=== PATIENT | female | born 1965 | race Caucasian/White ===

== ENCOUNTER 2017-02-03 11:26 | Observation (INO) | payer OTHER ==
[2017-02-03] VITALS (10 sets, daily range): BP systolic 145–194; BP diastolic 70–88; PULSE 60–109; RESP 16–20; TEMP 98.3–99.8; O2SAT 89–100
[~2017-02-03] VITALS: Ht 170.2 cm; Wt 90.0 kg
[~2017-02-03 11:26] MED LIST: IBUP100S30 PO
--- NOTE | 2017-02-03 11:34 | PD ---
Physical Exam Date Seen by Provider: Feb 03, 2017 Time Seen by Provider: 11:31 Narrative Pt states she was sent here for a transfusion. States Dr. Walker advised her to come in. Labs drawn Monday notified today, no hx of anemia. No fatigue, SOB, bleeding. Pt denies any pain. VSS, awaiting bed placement. Hx of diabetes, she is not on blood thinners. Data Data Last Documented VS Vital Signs Date Time Temp Pulse Resp B/P Pulse Ox O2 Delivery O2 Flow Rate FiO2 02/03/17 11:29 98.5 88 16 180/80 100 MDM Supervised Visit with AYANNA: Amber Tony Feb 03, 2017 11:34
[2017-02-03 11:51] LABS: AUTOMATED NEUTROPHIL # 3.5 TH/MM3 (1.8-7.7); BASOPHIL # 0.1 TH/MM3 (0-0.2); BASOPHIL % 1.3 % (0.0-2.0); EOSINOPHIL # 0.1 TH/MM3 (0-0.4); EOSINOPHIL % 1.8 % (0.0-4.0); HEMATOCRIT 23.8 % (35.0-46.0); HEMO FLAGS DIFF FINAL; LYMPH % 26.7 % (9.0-44.0); LYMPHOCYTE # 1.5 TH/MM3 (1.0-4.8); MEAN CELL VOLUME 84.8 FL (80.0-100.0); MEAN CORPUSCULAR HEMOGLOBIN 26.9 PG (27.0-34.0); MEAN CORPUSCULAR HGB CONC 31.7 % (32.0-36.0); MONO % 10.5 % (0.0-8.0); NEUT % 59.7 % (16.0-70.0); PLATELET COUNT 134 TH/MM3 (150-450); RED BLOOD COUNT 2.81 MIL/MM3 (4.00-5.30); RED CELL DISTRIBUTION WIDTH 19.6 % (11.6-17.2); WHITE BLOOD COUNT 5.8 TH/MM3 (4.0-11.0)
[2017-02-03 12:00] LABS: APTT (PATIENT) 30.1 SEC (24.3-30.1); INTERNATIONAL NORMALIZED RATIO 1.2 RATIO; PROTHROMBIN TIME - PATIENT 13.4 SEC (9.8-11.6)
[2017-02-03 12:08] LABS: ANION GAP 7 MEQ/L (5-15); AST (GOT) 111 U/L (15-37); BICARBONATE 22.7 MEQ/L (21.0-32.0); BLOOD UREA NITROGEN 8 MG/DL (7-18); CHLORIDE 105 MEQ/L (98-107); GLOMERULAR FILTRATION RATE 59 ML/MIN (>89); POTASSIUM 3.7 MEQ/L (3.5-5.1); SODIUM (NA) 135 MEQ/L (136-145)
[2017-02-03 12:09] LABS: ALT (GPT) 42 U/L (10-53)
[2017-02-03 12:11] LABS: ALKALINE PHOSPHATASE 246 U/L (45-117); TOTAL BILIRUBIN ADULT 1.1 MG/DL (0.2-1.0)
--- NOTE | 2017-02-03 12:34 | PD ---
HPI Chief Complaint: Abnormal Results Time Seen by Provider: 12:29 Travel History International Travel<30 days: No Contact w/Intl Traveler<30days: No Traveled to known affect area: No History of Present Illness HPI 51-year-old female that presents to the ED for evaluation of anemia. Patient was told today to calm but her doctor for possible transfusion. Patient has a history of diabetes but no history of anemia. Per patient she had blood work and wants then she got the results today. She denies any bleeding of any kind. Denies taking any blood thinners. She does have a history of depression and anxiety for which he takes medications but she denies any aspirin or NSAID use. She denies any pain of any kind. She states feeling tired after work but other than that she has no lightheadedness or weakness. She denies any chest pain or shortness of breath. No palpitations. No numbness, tilling, weakness. No changes in stool. No urinary symptoms. She does have allergies to aspirin , Augmentin, contrast media and erythromycin. No pain of any kind. PFSH Past Medical History Cancer: No Diabetes: Yes Patient Takes Glucophage: No Diminished Hearing: No Glaucoma: No Hepatitis: No Hiatal Hernia: No Hypertension: No Thyroid Disease: No Tetanus Vaccination: > 5 Years Influenza Vaccination: No ?: Not Past Surgical History Surgical History: No Previous Surgery Pacemaker: No Social History Alcohol Use: Yes (OCCAS) Tobacco Use: No Substance Use: No Allergies-Medications (Allergen,Severity, Reaction): Coded Allergies: Aspirin (Unverified Allergy, Unknown, 11/04/09) Augmentin (Unverified Allergy, Unknown, 11/04/09) Contrast Media (Unverified Allergy, Unknown, 11/04/09) Erythromycin (Unverified Allergy, Unknown, 11/04/09) Reported Meds & Prescriptions Reported Meds & Active Scripts Active Reported Advil (Ibuprofen) 100 Mg/5 Ml Isatu 200 Mg PO DAILYPRN Review of Systems Except as stated in HPI: all other systems reviewed are Neg Physical Exam Narrative GENERAL: SKIN: Warm and dry. HEAD: Atraumatic. Normocephalic. EYES: Pupils equal and round. No scleral icterus. No injection or drainage. ENT: No nasal bleeding or discharge. Mucous membranes pink and moist. Tongue is midline. No uvula deviation. NECK: Trachea midline. No JVD. CARDIOVASCULAR: Regular rate and rhythm. No murmurs, S3, S4. RESPIRATORY: No accessory muscle use. Clear to auscultation. Breath sounds equal bilaterally. GASTROINTESTINAL: Abdomen soft, non-tender, nondistended. Hepatic and splenic margins not palpable. Rectal exam: Done with female nurse present. No sign of hemorrhoids or active bleeding at this time. Hemoccult was done and was negative. MUSCULOSKELETAL: Extremities without clubbing, cyanosis, or edema. No obvious deformities. Full range of motion of the upper and lower extremities bilaterally. 2+ pulses bilaterally. NEUROLOGICAL: Awake and alert. No obvious cranial nerve deficits. Motor grossly within normal limits. Five out of 5 muscle strength in the arms and legs. Normal speech. PSYCHIATRIC: Appropriate mood and affect; insight and judgment normal. Data Data Last Documented VS Vital Signs Date Time Temp Pulse Resp B/P Pulse Ox O2 Delivery O2 Flow Rate FiO2 02/03/17 11:29 98.5 88 16 180/80 100 Orders Complete Blood Count With Diff (02/03/17 11:34) Comprehensive Metabolic Panel (02/03/17 11:34) Prothrombin Time / Inr (Pt) (02/03/17 11:34) Act Partial Throm Time (Ptt) (02/03/17 11:34) Type And Screen (02/03/17 11:34) Red Blood Cells (Rbc) (02/03/17 13:04) Blood Product Administration .UPON TRANSFUSION (02/03/17 13:04) Sodium Chlor 0.9% 250 Ml Inj (Ns 250 Ml (02/03/17 13:15) Admit Order (Ed Use Only) (02/03/17 13:11) Labs Laboratory Tests Test 02/03/17 11:40 White Blood Count 5.8 TH/MM3 Red Blood Count 2.81 MIL/MM3 Hemoglobin 7.5 GM/DL Hematocrit 23.8 % Mean Corpuscular Volume 84.8 FL Mean Corpuscular Hemoglobin 26.9 PG Mean Corpuscular Hemoglobin 31.7 % Concent Red Cell Distribution Width 19.6 % Platelet Count 134 TH/MM3 Mean Platelet Volume 8.8 FL Neutrophils (%) (Auto) 59.7 % Lymphocytes (%) (Auto) 26.7 % Monocytes (%) (Auto) 10.5 % Eosinophils (%) (Auto) 1.8 % Basophils (%) (Auto) 1.3 % Neutrophils # (Auto) 3.5 TH/MM3 Lymphocytes # (Auto) 1.5 TH/MM3 Monocytes # (Auto) 0.6 TH/MM3 Eosinophils # (Auto) 0.1 TH/MM3 Basophils # (Auto) 0.1 TH/MM3 CBC Comment DIFF FINAL Differential Comment Prothrombin Time 13.4 SEC Prothromb Time International 1.2 RATIO Ratio Activated Partial 30.1 SEC Thromboplast Time Sodium Level 135 MEQ/L Potassium Level 3.7 MEQ/L Chloride Level 105 MEQ/L Carbon Dioxide Level 22.7 MEQ/L Anion Gap 7 MEQ/L Blood Urea Nitrogen 8 MG/DL Creatinine 0.99 MG/DL Estimat Glomerular Filtration 59 ML/MIN Rate Random Glucose 202 MG/DL Calcium Level 8.5 MG/DL Total Bilirubin 1.1 MG/DL Aspartate Amino Transf 111 U/L (AST/SGOT) Alanine Aminotransferase 42 U/L (ALT/SGPT) Alkaline Phosphatase 246 U/L Total Protein 8.6 GM/DL Albumin 2.7 GM/DL Blood Type B NEGATIVE Antibody Screen NEGATIVE Blood Bank Comment [facility] Medical Decision Making Medical Screen Exam Complete: Yes Emergency Medical Condition: Yes Medical Record Reviewed: Yes Interpretation(s) CBC & BMP Diagram 02/03/17 11:40 coags WNL LFTs slightly elevated with akl phosphatase and AST Differential Diagnosis GI bleed versus anemia versus blood transfusion versus normal exam. Narrative Course 51-year-old female that presents to the ED for evaluation of anemia. Patient was properly examined and was found to have signs and symptoms consistent with anemia. Labs and imaging ordered. Labs did show a low hemoglobin of 7.5. Hemoccult was done and was negative. No sign of active bleeding at this time. Unclear etiology of anemia but does appear to be significant. I spoke with my attending about findings and she recommends admission. My attending Dr. Gonzalez personally spoke with the patient and she did mentioned that patient does feel dizzy and weak which she denied to me. We'll admit to [facility]. HemaPrompt Point of Care Internal Pos. & Neg. Controls: Passed Fecal Specimen Occult Blood: Negative Diagnosis Primary Impression: Symptomatic anemia Admitting Information Admitting Physician Requests: Observation Gokul Hayes Feb 03, 2017 12:34
--- NOTE | 2017-02-03 13:13 | PD ---
Physical Exam Narrative GENERAL: Well-nourished, well-developed patient. SKIN: Warm and dry. HEAD: Normocephalic and atraumatic. EYES: No injection or drainage. ENT: No nasal drainage noted. NECK: Supple, trachea midline. CARDIOVASCULAR: Regular rate and rhythm RESPIRATORY: No increased effort. No accessory muscle use. NEUROLOGICAL: Awake and alert. Moves all extremities. Normal speech. Data Data Last Documented VS Vital Signs Date Time Temp Pulse Resp B/P Pulse Ox O2 Delivery O2 Flow Rate FiO2 02/03/17 11:29 98.5 88 16 180/80 100 Orders Complete Blood Count With Diff (02/03/17 11:34) Comprehensive Metabolic Panel (02/03/17 11:34) Prothrombin Time / Inr (Pt) (02/03/17 11:34) Act Partial Throm Time (Ptt) (02/03/17 11:34) Type And Screen (02/03/17 11:34) Red Blood Cells (Rbc) (02/03/17 13:04) Blood Product Administration .UPON TRANSFUSION (02/03/17 13:04) Sodium Chlor 0.9% 250 Ml Inj (Ns 250 Ml (02/03/17 13:15) Admit Order (Ed Use Only) (02/03/17 13:11) Labs Laboratory Tests Test 02/03/17 11:40 White Blood Count 5.8 TH/MM3 Red Blood Count 2.81 MIL/MM3 Hemoglobin 7.5 GM/DL Hematocrit 23.8 % Mean Corpuscular Volume 84.8 FL Mean Corpuscular Hemoglobin 26.9 PG Mean Corpuscular Hemoglobin 31.7 % Concent Red Cell Distribution Width 19.6 % Platelet Count 134 TH/MM3 Mean Platelet Volume 8.8 FL Neutrophils (%) (Auto) 59.7 % Lymphocytes (%) (Auto) 26.7 % Monocytes (%) (Auto) 10.5 % Eosinophils (%) (Auto) 1.8 % Basophils (%) (Auto) 1.3 % Neutrophils # (Auto) 3.5 TH/MM3 Lymphocytes # (Auto) 1.5 TH/MM3 Monocytes # (Auto) 0.6 TH/MM3 Eosinophils # (Auto) 0.1 TH/MM3 Basophils # (Auto) 0.1 TH/MM3 CBC Comment DIFF FINAL Differential Comment Prothrombin Time 13.4 SEC Prothromb Time International 1.2 RATIO Ratio Activated Partial 30.1 SEC Thromboplast Time Sodium Level 135 MEQ/L Potassium Level 3.7 MEQ/L Chloride Level 105 MEQ/L Carbon Dioxide Level 22.7 MEQ/L Anion Gap 7 MEQ/L Blood Urea Nitrogen 8 MG/DL Creatinine 0.99 MG/DL Estimat Glomerular Filtration 59 ML/MIN Rate Random Glucose 202 MG/DL Calcium Level 8.5 MG/DL Total Bilirubin 1.1 MG/DL Aspartate Amino Transf 111 U/L (AST/SGOT) Alanine Aminotransferase 42 U/L (ALT/SGPT) Alkaline Phosphatase 246 U/L Total Protein 8.6 GM/DL Albumin 2.7 GM/DL Blood Type B NEGATIVE Antibody Screen NEGATIVE Blood Bank Comment MDM Supervised Visit with AYANNA: Yes Interpretation(s) CBC & BMP Diagram 02/03/17 11:40 Narrative Course I, Dr. nieves, have reviewed the advance practice practitioner's documentation and am in agreement, met with the patient face to face, made the diagnosis, and the medical decision making was done by me. *My assessment and Findings: 51-year-old female presents with abnormal lab value as an outpatient. She states she's been dizzy and tired. Her lab work confirms anemia. We will admit and transfuse 1 unit. Patient agrees Physician Communication Physician Communication dr holguin agrees to admit Diagnosis Primary Impression: Symptomatic anemia Admitting Information Admitting Physician Requests: Observation Evelyne Nieves MD Feb 03, 2017 13:13
[2017-02-03] MEDS ORDERED: SODIUM CHLOR 0.9% 250 ML INJ 250 ML IV ONE (13:15)
--- NOTE | 2017-02-03 13:18 | HHI.HP ---
HPI Service [facility] Hospitalists Primary Care Physician Sanket Walker M.D. Admission Diagnosis anemia Chief Complaint: sob/dizzy/anemia Travel History International Travel<30 Days: No Contact w/Intl Traveler <30 Da: No Traveled to Known Affected Are: No History of Present Illness Pt is 51 yo with dm 2, htn who presents to ED at request of her pcp for new anemia. She was called for hgb of 7.5 and sent to ED. Here Hgb was 7.5. Pt says that she is symptomatic getting sob with exertion, dizzy and weak for at least 2 weeks. no vaginal bleeding and no hematochezia or melena. She notes some night sweats but says she is going through menopause. She takes 2 ibuprofen every day and has done so for years.. Denies any epigastric pain. Pt reports a rash over her face and chest that began 4 months ago. She went to a [facility] practitioner last week and one was apparently sampled and sent for analysis at "[facility]". On review of her outpt records her hgb was 12 in June. Review of Systems Other weak/dizzy/sob rash face/neck/chest. Past Family Social History Past Medical History dm 2 htn recently taken of thyroid meds per pt. depression. recent face/chest rash..seen by derm and eval pending Reported Medications daily ibuprofen 400mg daily cymbalta 20mg daily metformin 500mg daily losartan 50mg daily Allergies: Coded Allergies: Aspirin (Unverified Allergy, Unknown, 02/03/17) Augmentin (Unverified Allergy, Unknown, 02/03/17) Contrast Media (Unverified Allergy, Unknown, 02/03/17) Erythromycin (Unverified Allergy, Unknown, 02/03/17) Family History father "lymphoma involving kidney:" mother uterine ca sister breast ca Social History occ etoh no tob. Physical Exam Vital Signs face/ant chest with vesicular/pustular type rash. heart reg lung cta abd s/nt/nabs ext no edema Vital Signs Date Time Temp Pulse Resp B/P Pulse Ox O2 Delivery O2 Flow Rate FiO2 02/03/17 11:29 98.5 88 16 180/80 100 Laboratory Laboratory Tests Test 02/03/17 11:40 White Blood Count 5.8 Red Blood Count 2.81 Hemoglobin 7.5 Hematocrit 23.8 Mean Corpuscular Volume 84.8 Mean Corpuscular Hemoglobin 26.9 Mean Corpuscular Hemoglobin 31.7 Concent Red Cell Distribution Width 19.6 Platelet Count 134 Mean Platelet Volume 8.8 Neutrophils (%) (Auto) 59.7 Lymphocytes (%) (Auto) 26.7 Monocytes (%) (Auto) 10.5 Eosinophils (%) (Auto) 1.8 Basophils (%) (Auto) 1.3 Neutrophils # (Auto) 3.5 Lymphocytes # (Auto) 1.5 Monocytes # (Auto) 0.6 Eosinophils # (Auto) 0.1 Basophils # (Auto) 0.1 CBC Comment DIFF FINAL Differential Comment Prothrombin Time 13.4 Prothromb Time International 1.2 Ratio Activated Partial 30.1 Thromboplast Time Sodium Level 135 Potassium Level 3.7 Chloride Level 105 Carbon Dioxide Level 22.7 Anion Gap 7 Blood Urea Nitrogen 8 Creatinine 0.99 Estimat Glomerular Filtration 59 Rate Random Glucose 202 Calcium Level 8.5 Total Bilirubin 1.1 Aspartate Amino Transf 111 (AST/SGOT) Alanine Aminotransferase 42 (ALT/SGPT) Alkaline Phosphatase 246 Total Protein 8.6 Albumin 2.7 Blood Type B NEGATIVE Antibody Screen NEGATIVE Blood Bank Comment Result Diagram: 02/03/17 1140 02/03/17 1140 Assessment and Plan Problem List: (1) Symptomatic anemia Status: Acute Plan: Pt is 51 yo with dm2 and htn recent development of vesicular/pustular facial/chest rash presents with symptomatic anemia. probably iron def. ..guiac neg in ED. ..could be iron def from gi losses due to chronic nsaid use ..her plt are low and will consider bone marrow process ..with rash and nonspecific elevation of liver enzymes and probably iron def with r/o celiac stop nsaids. ppi ED gave unit blood due to symptoms. will give iv venofer iron iron panel, b12, peripheral smear. recheck lft, celiac, salvador panel. no active bleed and pt could be referred for outpt endoscopy if needed. will try to obtain recent derm evaluation. dvt prophylaxis. hsa pcp f/u Monday. (2) DM (diabetes mellitus) Status: Chronic Plan: ssi. oha (3) HTN (hypertension) Status: Chronic Plan: cont her arb. Bj Herrera MD Feb 03, 2017 13:18
[2017-02-03 13:37] LABS: RETIC % 2.1 % (0.4-3.0); REVIEW FLAG FINAL
[2017-02-03] MEDS ORDERED: REST30CA PO (13:55)
[2017-02-03] MEDS ORDERED: IBUP400T20 PO (13:55)
[2017-02-03] MEDS ORDERED: METO-309 PO (13:55)
[2017-02-03] MEDS ORDERED: ALPR.25 PO (13:55)
[2017-02-03] MEDS ORDERED: LEXA20TA PO (13:55)
[2017-02-03] MEDS ORDERED: METF500T PO (13:56)
[2017-02-03] MEDS ORDERED: cloNIDine HCL 0.1 MG TAB PO PRN (14:00)
[2017-02-03] MEDS ORDERED: DEXTROSE 50% IN WATER 50 ML VIAL(D50) IV PUSH PRN (14:15)
[2017-02-03] MEDS ORDERED: GLUCAGON 1 MG/ML VIAL OTHER PRN (14:15)
[2017-02-03 14:47] LABS: FERRITIN 19 NG/ML (8-252); TRANSFERRIN IRON PROFILE 330 MG/DL (200-360)
[2017-02-03] MEDS: INSULIN ASPART SUPPLEMENTAL SCALE SQ SCH ×2 (16:00→20:47)
[2017-02-03] MEDS ORDERED: IRON SUCROSE INJ 200 MG in SODIUM CHLORIDE 0.9% INJ 100 ML IV ONE (17:00)
[2017-02-03] MEDS ORDERED: LOSA50TA PO (19:26)
[2017-02-04] VITALS: PULSE 96
[2017-02-04 04:00] VITALS: PULSE 90
[2017-02-04 04:36] VITALS: BP 140/68; PULSE 89; RESP 18; TEMP 98.4; O2SAT 96
[2017-02-04] MEDS: INSULIN ASPART SUPPLEMENTAL SCALE SQ SCH ×2 (06:10→13:00)
[2017-02-04 06:19] LABS: AUTOMATED NEUTROPHIL # 3.9 TH/MM3 (1.8-7.7); BASOPHIL # 0.1 TH/MM3 (0-0.2); BASOPHIL % 0.9 % (0.0-2.0); EOSINOPHIL # 0.1 TH/MM3 (0-0.4); EOSINOPHIL % 1.6 % (0.0-4.0); HEMATOCRIT 26.2 % (35.0-46.0); HEMO FLAGS DIFF FINAL; LYMPH % 23.2 % (9.0-44.0); LYMPHOCYTE # 1.4 TH/MM3 (1.0-4.8); MEAN CELL VOLUME 83.2 FL (80.0-100.0); MEAN CORPUSCULAR HEMOGLOBIN 27.4 PG (27.0-34.0); MEAN CORPUSCULAR HGB CONC 32.9 % (32.0-36.0); MONO % 9.3 % (0.0-8.0); PLATELET COUNT 124 TH/MM3 (150-450); RED BLOOD COUNT 3.14 MIL/MM3 (4.00-5.30)
[2017-02-04 06:46] LABS: BICARBONATE 25.4 MEQ/L (21.0-32.0); POTASSIUM 3.6 MEQ/L (3.5-5.1)
[2017-02-04 06:50] LABS: TOTAL BILIRUBIN ADULT 2.2 MG/DL (0.2-1.0)
[2017-02-04 07:59] VITALS: PULSE 82
[2017-02-04 08:43] VITALS: BP 161/71; PULSE 86; RESP 20; TEMP 98.2; O2SAT 96
[2017-02-04] MEDS ORDERED: IRON SUCROSE INJ 200 MG in SODIUM CHLORIDE 0.9% INJ 100 ML IV ONE (09:00)
[2017-02-04] MEDS ORDERED: metFORMIN HCL 500 MG TAB PO SCH (09:00)
[2017-02-04] MEDS ORDERED: DULoxetine HCl DR 20 MG CAP PO SCH (09:00)
[2017-02-04] MEDS ORDERED: LOSARTAN 50 MG TAB PO SCH (09:00)
[2017-02-04] MEDS ORDERED: ESCITALOPRAM OXALATE 20 MG TAB PO SCH (09:00)
--- NOTE | 2017-02-04 09:26 | RADRPT ---
EXAM DATE/TIME: 02/04/2017 08:40 [facility] COMPARISON: No previous studies available for comparison. INDICATIONS : Increased lab values. MEDICAL HISTORY : Hypertension. Hypothyroidism. Diabetes. Depression. Anxiety. Anemia. SURGICAL HISTORY : Laproscopy. ENCOUNTER: Initial ACUITY: 1 day PAIN SCORE: 0/10 LOCATION: Bilateral upper quadrant MEASUREMENTS: LIVER: 19.8. cm length COMMON DUCT: 4 mm RIGHT KIDNEY: 10.9 x 5.4 x 4.4 cm SPLEEN: 14.3 cm length FINDINGS: LIVER: The liver is enlarged measuring up to 20 cm with heterogeneous echotexture and increased echogenicity . There is no focal mass or ductal dilatation. There is no evidence of ascites. COMMON DUCT: No intraluminal mass or stone visualized. GALLBLADDER: Contains no stones, demonstrates no wall thickening or pericholecystic fluid. PANCREAS: The visualized portions are within normal limits. RIGHT KIDNEY: No hydronephrosis, stone or mass. SPLEEN: Mild splenomegaly with no focal lesion. CONCLUSION: 1. Enlarged heterogeneous liver with increased echogenicity. This could indicate fatty infiltration o r hepatocellular disease. 2. Mild splenomegaly with no focal lesion or ascites. 3. Normal gallbladder with no evidence of cholelithiasis. Aime Guidry MD on February 04, 2017 at 9:22 Board Certified Radiologist. This report was verified electronically.
[2017-02-04 12:30] VITALS: BP 152/68; PULSE 86; RESP 18; TEMP 97.9; O2SAT 96
--- NOTE | 2017-02-04 13:49 | HHI.PR ---
Subjective Remarks no bleeding no abdomen pain munoz and dizziness resolved with blood. eager for d/c Objective Vitals facial/ant chest rash. vesicular/pustular heart reg lung cta abd s/nt ext no edema Vital Signs Date Time Temp Pulse Resp B/P Pulse Ox O2 Delivery O2 Flow Rate FiO2 02/04/17 12:30 97.9 86 18 152/68 96 02/04/17 08:43 98.2 86 20 161/71 96 02/04/17 04:36 98.4 89 18 140/68 96 02/04/17 04:00 90 02/04/17 00:00 96 02/03/17 23:24 98.4 86 19 145/72 95 02/03/17 22:46 99.8 87 20 194/88 97 02/03/17 20:38 99.8 87 20 160/78 97 02/03/17 20:00 96 02/03/17 18:40 109 02/03/17 18:33 98.4 90 18 149/75 95 02/03/17 18:15 98.9 91 20 159/76 98 02/03/17 17:17 98.3 60 20 157/78 89 02/03/17 13:50 90 16 159/70 97 Room Air 02/03/17 02/03/17 02/04/17 15:00 23:00 07:00 Intake Total 730 ml Balance 730 ml Intake Oral 230 ml Packed Cells 500 ml # Voids 1 Result Diagram: 02/04/17 0543 02/04/17 0543 A/P Problem List: (1) Symptomatic anemia Status: Acute Plan: Pt is 51 yo with dm2 and htn recent development of vesicular/pustular facial/chest rash presents with symptomatic anemia. iron deficiency. ..guiac neg in ED. ..could be iron def from gi losses due to chronic nsaid use ..her plt are low and will consider bone marrow process ..with rash and nonspecific elevation of liver enzymes plus iron def will exclude celiac Her LFT are slightly elevated..bili/asa/alk phos Liver u/s showed hepatomegaly and probable fatty liver but no mass. peripheral smear consistent with iron def. stop nsaids. ppi s/p 1 unit blood in ED and venofer iron iv x 2 cont po iron f/u celiac panel I think she needs GI referral for egd/colonoscopy f/u LFT and she may need further evaluation of Liver..?CT or MR ...I would have a low threshold to look for malignancy in this pt. Hopefully she can get her dermatology results Monday. She has an appt with her pcp on Monday morning..I will call also. i (2) DM (diabetes mellitus) Status: Chronic Plan: ssi. oha (3) HTN (hypertension) Status: Chronic Plan: cont her arb. Bj Herrera MD Feb 04, 2017 13:48
[2017-02-04] MEDS ORDERED: PROT40TA PO (13:50)
[2017-02-04] MEDS ORDERED: FERR325T8 PO (13:50)
--- NOTE | 2017-02-04 13:51 | HHI.DCPOC ---
Discharge Care Plan Diagnosis: (1) Symptomatic anemia (2) Iron deficiency anemia (3) Abnormal liver enzymes (4) Enlarged liver (5) DM (diabetes mellitus) (6) HTN (hypertension) (7) NSAID long-term use Goals to Promote Your Health * To prevent worsening of your condition and complications * To maintain your health at the optimal level Directions to Meet Your Goals Take your medications as prescribed Follow your dietary instruction Follow activity as directed Keep your appointments as scheduled Take your immunizations and boosters as scheduled If your symptoms worsen call your PCP, if no PCP go to Urgent Care Center or Emergency Room Smoking is Dangerous to Your Health. Avoid second hand smoke Call the 24-hour hour crisis hotline for domestic abuse at Bj Herrera MD Feb 04, 2017 13:51
[2017-02-08 11:52] LABS: IGA SERUM 1542 mg/dL (81-463)
[2017-02-08 17:52] LABS: TISSUE TRANSGLUTAMINASE AB 6 U/mL (())
[2017-02-09 23:53] LABS: ENDOMYSIAL AB TITER ND (<1:5)
== END 2017-02-04 15:48 | disposition home or self-care (01) ==
LOC: NEPE 11:26 → NEDA 13:12 → NEPGCP 15:11
PROVIDERS: ADMIT Hospitalist; ATTEND Hospitalist
DX: D50.9 Iron deficiency anemia, unspecified (principal); D69.6 Thrombocytopenia, unspecified; I10 Essential (primary) hypertension; E11.9 Type 2 diabetes mellitus without complications; R21 Rash and other nonspecific skin eruption; R74.8 Abnormal levels of other serum enzymes; R06.02 Shortness of breath; R61 Generalized hyperhidrosis; F32.9 Major depressive disorder, single episode, unspecified; E03.9 Hypothyroidism, unspecified; R16.1 Splenomegaly, not elsewhere classified; F41.9 Anxiety disorder, unspecified; K76.0 Fatty (change of) liver, not elsewhere classified; Z79.899 Other long term (current) drug therapy
CPT/HCPCS: 36430; 76705; 80048; 80053; 80076; 82607; 82728; 82784; 82948; 83516; 83540; 83550; 85025; 85044; 85060; 85610; 85730; 86038; 86255; 86850; 86900; 86901; 86920; 96365; 96366; 96372; 99285; G0378; J1756; J1815; P9016

== ENCOUNTER → 2017-05-31 | Outpatient (CLI) | payer OTHER ==
[~2017-05-31] MED LIST changes: +ALPR.25 PO; +FERR325T18 PO; -IBUP100S30 PO; +LEXA20TA PO; +LOSA50TA PO; +METF500T PO; +PROT40TA PO; +REST30CA PO
== END ==
LOC: CLAB 09:59
PROVIDERS: ATTEND Family Medicine
DX: R42 Dizziness and giddiness (principal)
CPT/HCPCS: 36415; 82140

== ENCOUNTER 2017-06-19 12:33 | Inpatient (IN) | payer OTHER ==
[~2017-06-19] VITALS: Ht 162.6 cm; Wt 90.0 kg
[2017-06-19 12:37] VITALS: BP 139/66; PULSE 70; RESP 16; TEMP 98; O2SAT 96
[2017-06-19] MEDS ORDERED: TRAM50TA PO (12:49)
[2017-06-19] MEDS ORDERED: METF750T PO (12:49)
[2017-06-19] MEDS ORDERED: VITA100064 PO (12:49)
[2017-06-19] MEDS ORDERED: MULTTAB67 PO (12:49)
[2017-06-19] MEDS ORDERED: NADO20TA PO (12:49)
[2017-06-19] MEDS ORDERED: LACT10SO PO (12:49)
[2017-06-19 13:02] VITALS: RESP 20; O2SAT 94
[2017-06-19 13:11] LABS: AUTOMATED NEUTROPHIL # 2.6 TH/MM3 (1.8-7.7); BASOPHIL % 0.7 % (0.0-2.0); EOSINOPHIL # 0.1 TH/MM3 (0-0.4); EOSINOPHIL % 1.7 % (0.0-4.0); HEMATOCRIT 33.8 % (35.0-46.0); HEMOGLOBIN 11.3 GM/DL (11.6-15.3); LYMPH % 34.7 % (9.0-44.0); LYMPHOCYTE # 1.7 TH/MM3 (1.0-4.8); MEAN CELL VOLUME 106.9 FL (80.0-100.0); MEAN CORPUSCULAR HEMOGLOBIN 35.6 PG (27.0-34.0); MEAN CORPUSCULAR HGB CONC 33.3 % (32.0-36.0); MEAN PLATELET VOLUME 10.3 FL (7.0-11.0); MONO % 11.1 % (0.0-8.0); MONOCYTE # 0.6 TH/MM3 (0-0.9); NEUT % 51.8 % (16.0-70.0); PLATELET COUNT 86 TH/MM3 (150-450); RED BLOOD COUNT 3.16 MIL/MM3 (4.00-5.30); RED CELL DISTRIBUTION WIDTH 14.9 % (11.6-17.2)
[2017-06-19 13:21] LABS: INTERNATIONAL NORMALIZED RATIO 1.5 RATIO; PROTHROMBIN TIME - PATIENT 15.2 SEC (9.8-11.6)
[2017-06-19 13:28] LABS: ALBUMIN 2.7 GM/DL (3.4-5.0); ALT (GPT) 74 U/L (10-53); AST (GOT) 143 U/L (15-37); BICARBONATE 23.2 MEQ/L (21.0-32.0); BLOOD UREA NITROGEN 19 MG/DL (7-18); CALCIUM 8.8 MG/DL (8.5-10.1); CHLORIDE 107 MEQ/L (98-107); CREATININE 1.17 MG/DL (0.50-1.00); DIRECT BILIRUBIN ADULT 2.8 MG/DL (0.0-0.2); GLOMERULAR FILTRATION RATE 48 ML/MIN (>89); GLUCOSE,RANDOM 137 MG/DL (74-106); SODIUM (NA) 140 MEQ/L (136-145)
--- NOTE | 2017-06-19 13:30 | RADRPT ---
EXAM DATE/TIME: 06/19/2017 13:10 [facility] COMPARISON: No previous studies available for comparison. INDICATIONS : Dizziness, shortness of breath getting worse over the last 3 weeks MEDICAL HISTORY : None. SURGICAL HISTORY : None. ENCOUNTER: Initial ACUITY: 3 weeks PAIN SCORE: 0/10 LOCATION: Bilateral chest FINDINGS: Minimal parenchymal changes left lung base. Right lung clear. No pneumothorax. No fluid The cardio mediastinal contours are unremarkable. Osseous structures are intact. CONCLUSION: Minimal nonspecific parenchymal changes left base. Ronaldo Potter MD FACR on June 19, 2017 at 13:28 Board Certified Radiologist. This report was verified electronically.
[2017-06-19 13:33] LABS: ALKALINE PHOSPHATASE 125 U/L (45-117); INDIRECT BILIRUBIN 1.7 MG/DL (0.0-0.8); TOTAL BILIRUBIN ADULT 4.5 MG/DL (0.2-1.0); TOTAL PROTEIN 8.3 GM/DL (6.4-8.2); TROPONIN I LESS THAN 0.02 NG/ML (0.02-0.05)
[2017-06-19] MEDS ORDERED: LACTULOSE SYRUP 20 GM/30 ML CUP PO ONE (14:15)
--- NOTE | 2017-06-19 14:27 | RADRPT ---
EXAM DATE/TIME: 06/19/2017 14:09 [facility] COMPARISON: No previous studies available for comparison. INDICATIONS : Altered mental status. Right eye vision changes. RADIATION DOSE: 34.46 CTDIvol (mGy) MEDICAL HISTORY : Hypertension. SURGICAL HISTORY : None. ENCOUNTER: Initial ACUITY: 2 weeks PAIN SCALE: 0/10 LOCATION: cranial TECHNIQUE: Multiple contiguous axial images were obtained of the head. Using automated exposure control and adj ustment of the mA and/or kV according to patient size, radiation dose was kept as low as reasonably a chievable to obtain optimal diagnostic quality images. DICOM format image data is available electro nically for review and comparison. FINDINGS: CEREBRUM: The ventricles are normal for age. No evidence of midline shift, mass lesion, hemorrhage or acute in farction. No extra-axial fluid collections are seen. POSTERIOR FOSSA: The cerebellum and brainstem are intact. The 4th ventricle is midline. The cerebellopontine angle i s unremarkable. EXTRACRANIAL: The visualized portion of the orbits is intact. SKULL: The calvaria is intact. No evidence of skull fracture. CONCLUSION: Negative for acute process. Ronaldo Potter MD FACR on June 19, 2017 at 14:25 Board Certified Radiologist. This report was verified electronically.
--- NOTE | 2017-06-19 14:46 | PD ---
HPI Chief Complaint: Neuro Symptoms/ Deficits Time Seen by Provider: 12:43 Travel History International Travel<30 days: No Contact w/Intl Traveler<30days: No Traveled to known affect area: No History of Present Illness HPI Patient is a 51 year old female who comes in with her daughter due to worsening confusion. Per daughter, for the past few weeks she has seemed increasingly confused. Her doctor has started to do tests for cirrhosis, but they do not have a lot of answers yet. She takes Lactulose at home, but her daughter says that she has not been taking it. She had an ammonia level drawn in the past 2 weeks that was elevated and she says her doctor was going to recheck it next week. Her daughter was concerned because while she was talking to her, she became acutely altered, unresponsive and her eye drifted to the left. She says she has been having headaches. She has not had fever or chills. She denies abdominal pain. PFSH Past Medical History Anxiety: Yes Depression: Yes Cancer: No Cardiovascular Problems: No Diabetes: Yes Patient Takes Glucophage: Yes Diminished Hearing: No Glaucoma: No Hepatitis: No Hiatal Hernia: No Hypertension: Yes Neurologic: Yes (headaches) Psychiatric: Yes Respiratory: No Thyroid Disease: Yes (hypothyroidism) Ulcer: Yes (hx of transfusion) Tetanus Vaccination: > 5 Years Influenza Vaccination: No ?: Not : 1 Para: 1 Miscarriage: 0 : 0 Past Surgical History Abdominal Surgery: Yes (laporoscopy) Pacemaker: No Other Surgery: Yes (colonoscopy) Social History Alcohol Use: Yes (OCCAS) Tobacco Use: No Substance Use: No Allergies-Medications (Allergen,Severity, Reaction): Coded Allergies: amoxicillin (Unverified Allergy, Unknown, 06/19/17) aspirin (Unverified Allergy, Unknown, 06/19/17) clavulanic acid (Unverified Allergy, Unknown, 06/19/17) diatrizoate meglumine (Unverified Allergy, Unknown, 06/19/17) erythromycin base (Unverified Allergy, Unknown, 06/19/17) gadobenic acid (Unverified Allergy, Unknown, 06/19/17) gadodiamide (Unverified Allergy, Unknown, 06/19/17) gadoteridol (Unverified Allergy, Unknown, 06/19/17) iodixanol (Unverified Allergy, Unknown, 06/19/17) iohexol (Unverified Allergy, Unknown, 06/19/17) Reported Meds & Prescriptions Reported Meds & Active Scripts Active Ferrous Sulfate 325 Mg (65 Mg Iron) Tablet 325 Mg PO BIDPC Reported Nadolol 20 Mg Tab 20 Mg PO DAILY Tramadol (Tramadol HCl) 50 Mg Tab 50 Mg PO Q4H PRN Metformin ER (Metformin HCl) 750 Mg Mckenzie 1,500 Mg PO DAILY With evening meal Vitamin D3 (Cholecalciferol) 1,000 Unit Tab 1,000 Units PO DAILY Multiple Vitamin 1 Tab 1 Tab PO DAILY Lactulose Liq (Lactulose) 10 Gm/15 Ml Soln 15 Ml PO BID Losartan (Losartan Potassium) 50 Mg Tab 50 Mg PO DAILY Review of Systems Except as stated in HPI: all other systems reviewed are Neg General / Constitutional: No: Fever, Chills Eyes: No: Blurred Vision HENT: Positive: Headaches Cardiovascular: No: Chest Pain or Discomfort Respiratory: No: Shortness of Breath Gastrointestinal: No: Nausea, Vomiting, Abdominal Pain Musculoskeletal: No: Myalgias, Edema Skin: Positive Change in Pigmentation, No Rash Neurologic: Positive: Change in Mentation, No: Weakness Physical Exam Narrative GENERAL: Awake and alert, mildly confused, in no acute distress. SKIN: Jaundiced, but no signs of wounds or infections. HEAD: Atraumatic. Normocephalic. EYES: Pupils equal and round. Scleral icterus. ENT: Mucous membranes pink and moist. NECK: Trachea midline. No JVD. CARDIOVASCULAR: Regular rate and rhythm. No murmur appreciated. RESPIRATORY: No accessory muscle use. Clear to auscultation. Breath sounds equal bilaterally. GASTROINTESTINAL: Abdomen soft, non-tender, nondistended. MUSCULOSKELETAL: No obvious deformities. No clubbing. No cyanosis. No edema. NEUROLOGICAL: Awake and alert, with slowed speech, has some difficulty carrying on a conversation. No obvious cranial nerve deficits. Motor grossly within normal limits. PSYCHIATRIC: Appropriate mood and affect; insight and judgment normal. Data Data Last Documented VS Vital Signs Date Time Temp Pulse Resp B/P (MAP) Pulse Ox O2 Delivery O2 Flow Rate FiO2 06/19/17 13:02 20 94 Room Air 06/19/17 12:37 98.0 70 139/66 (90) Orders Orders Electrocardiogram (06/19/17 12:51) Ammonia (06/19/17 12:51) Basic Metabolic Panel (Bmp) (06/19/17 12:51) Complete Blood Count With Diff (06/19/17 12:51) Prothrombin Time / Inr (Pt) (06/19/17 12:51) Act Partial Throm Time (Ptt) (06/19/17 12:51) Troponin I (06/19/17 12:51) Urinalysis - C+S If Indicated (06/19/17 12:51) Chest, Single Ap (06/19/17 12:51) Ct Brain W/O Iv Contrast(Rout) (06/19/17 12:51) Blood Glucose (06/19/17 12:51) Ecg Monitoring (06/19/17 12:51) Iv Access Insert/Monitor (06/19/17 12:51) Oximetry (06/19/17 12:51) Sodium Chloride 0.9% Flush (Ns Flush) (06/19/17 13:00) Alcohol (Ethanol) (06/19/17 12:51) Hepatic Functional Panel (06/19/17 12:51) Lactulose Liq (Lactulose Liq) (06/19/17 14:15) Labs Laboratory Tests Test 06/19/17 13:00 White Blood Count 5.0 TH/MM3 Red Blood Count 3.16 MIL/MM3 Hemoglobin 11.3 GM/DL Hematocrit 33.8 % Mean Corpuscular Volume 106.9 FL Mean Corpuscular Hemoglobin 35.6 PG Mean Corpuscular Hemoglobin Concent 33.3 % Red Cell Distribution Width 14.9 % Platelet Count 86 TH/MM3 Mean Platelet Volume 10.3 FL Neutrophils (%) (Auto) 51.8 % Lymphocytes (%) (Auto) 34.7 % Monocytes (%) (Auto) 11.1 % Eosinophils (%) (Auto) 1.7 % Basophils (%) (Auto) 0.7 % Neutrophils # (Auto) 2.6 TH/MM3 Lymphocytes # (Auto) 1.7 TH/MM3 Monocytes # (Auto) 0.6 TH/MM3 Eosinophils # (Auto) 0.1 TH/MM3 Basophils # (Auto) 0.0 TH/MM3 CBC Comment AUTO DIFF Differential Comment AUTO DIFF CONFIRMED Platelet Estimate LOW Platelet Morphology Comment ENLARGED Prothrombin Time 15.2 SEC Prothromb Time International Ratio 1.5 RATIO Activated Partial Thromboplast Time 33.2 SEC Blood Urea Nitrogen 19 MG/DL Creatinine 1.17 MG/DL Random Glucose 137 MG/DL Total Protein 8.3 GM/DL Albumin 2.7 GM/DL Calcium Level 8.8 MG/DL Alkaline Phosphatase 125 U/L Aspartate Amino Transf (AST/SGOT) 143 U/L Alanine Aminotransferase (ALT/SGPT) 74 U/L Total Bilirubin 4.5 MG/DL Direct Bilirubin 2.8 MG/DL Sodium Level 140 MEQ/L Potassium Level 4.1 MEQ/L Chloride Level 107 MEQ/L Carbon Dioxide Level 23.2 MEQ/L Anion Gap 10 MEQ/L Estimat Glomerular Filtration Rate 48 ML/MIN Indirect Bilirubin 1.7 MG/DL Ammonia 93 MCMOL/L Troponin I LESS THAN 0.02 NG/ML Ethyl Alcohol Level LESS THAN 3 MG/DL MDM Medical Decision Making Medical Screen Exam Complete: Yes Emergency Medical Condition: Yes Medical Record Reviewed: Yes Interpretation(s) ECG shows normal sinus rhythm at 62, no ST elevation or depression, normal intervals. Differential Diagnosis Hepatic encephalopathy versus electrolyte abnormality versus CVA versus ICH Narrative Course Patient is a 50-year-old female who comes in due to confusion and an episode of unresponsiveness. Currently, patient is mildly confused, has slowed speech. IV established, labs sent. Labs show an elevated total bilirubin, abnormal liver function testing and elevated INR. Ammonia level is 93, which is more than double her previous [address] head performed shows no acute abnormalities. Patient given lactulose. Ultrasound ordered. Patient will be admitted for management of hepatic encephalopathy as well as liver failure. Diagnosis Primary Impression: Liver failure Qualified Codes: K72.00 - Acute and subacute hepatic failure without coma Additional Impressions: Hepatic encephalopathy Coagulopathy Admitting Information Admitting Physician Requests: Admit Geneva Trujillo MD Jun 19, 2017 14:46
[2017-06-19 14:47] VITALS: BP 111/63; PULSE 63; RESP 16; O2SAT 97
[2017-06-19] MEDS ORDERED: KETOROLAC TROMETHAMINE 30 MG/ML (IVP) VIAL IV PUSH ONE (15:00)
--- NOTE | 2017-06-19 16:23 | HHI.HP ---
HPI Service [facility] Hospitalists Primary Care Physician Sanket Walkre M.D. Admission Diagnosis hepatic encephalopathy, liver failure, coagulpathy Chief Complaint: confusion Travel History International Travel<30 Days: No Contact w/Intl Traveler <30 Da: No Traveled to Known Affected Are: No History of Present Illness Patient is 51 yo with htn and dm 2. She was seen here at [facility] in 02/09 with symptomatic anemia and new diagnosis of iron def anemia was made. she was given blood transfusion and had guiac neg stool. Mild lft elevation and her celiac ab's were positive. She was discharged and f/ u with pcp then GI and had egd/colonoscopy. Sent to Hem/onc and then [facility]. Per my discussion with pcp GI/Rheum thought she also might have autoimmune hepatitis and recommended liver bx. Pt then refused to go back to those physicians. Later noted to have elevated ammonia but was noncompliant with lactulose. Has recently been more confused with falls resumed lactulose 2 days ago but daughter came into town and brought her to ED for slow mentation and balance concerns. Pt tells me it has been up to a month since her last drink of wine. But daughter and another family friend found open wine bottle on her table. Pt reluctantly admitted to etoh overuse in the past and she admits to 6-8 tylenol per day for around a yr. Presented with hepatic encephalopathy and I was asked to admit her. Review of Systems Other confusion falls med noncompliance Past Family Social History Past Medical History dm 2 htn iron def anemia celiac disease. positive ab's depression. recent face/chest rash..seen by derm and michael per pt is "sarcoidosis" egd/colon within last 2 months reportedly negative except for benign polyp Reported Medications Ferrous Sulfate 325 Mg (65 Mg Iron) Tablet 325 Mg PO BIDPC Nadolol 20 Mg Tab 20 Mg PO DAILY Tramadol (Tramadol HCl) 50 Mg Tab 50 Mg PO Q4H PRN Metformin ER (Metformin HCl) 750 Mg Mckenzie 1,500 Mg PO DAILY With evening meal Vitamin D3 (Cholecalciferol) 1,000 Unit Tab 1,000 Units PO DAILY Multiple Vitamin 1 Tab 1 Tab PO DAILY Lactulose Liq (Lactulose) 10 Gm/15 Ml Soln 15 Ml PO BID Losartan (Losartan Potassium) 50 Mg Tab 50 Mg PO DAILY Allergies: Coded Allergies: amoxicillin (Verified Allergy, Unknown, 06/19/17) aspirin (Verified Allergy, Unknown, 06/19/17) clavulanic acid (Verified Allergy, Unknown, 06/19/17) diatrizoate meglumine (Verified Allergy, Unknown, 06/19/17) erythromycin base (Verified Allergy, Unknown, 06/19/17) gadobenic acid (Verified Allergy, Unknown, 06/19/17) gadodiamide (Verified Allergy, Unknown, 06/19/17) gadoteridol (Verified Allergy, Unknown, 06/19/17) iodixanol (Verified Allergy, Unknown, 06/19/17) iohexol (Verified Allergy, Unknown, 06/19/17) Family History parent with etoh abuse Social History past etoh abuse. pt uses wine..pt is not forthcoming with exact amt of etoh still consumed. Physical Exam Vital Signs mild confusion cooperative icteric/jaundice heart reg lung cta abd s/nt ext no edema Vital Signs Date Time Temp Pulse Resp B/P (MAP) Pulse Ox O2 Delivery O2 Flow Rate FiO2 06/19/17 15:59 16 06/19/17 14:47 63 16 111/63 (79) 97 Room Air 06/19/17 13:02 20 94 Room Air 06/19/17 12:37 98.0 70 16 139/66 (90) 96 Laboratory Laboratory Tests Test 06/19/17 13:00 White Blood Count 5.0 Red Blood Count 3.16 Hemoglobin 11.3 Hematocrit 33.8 Mean Corpuscular Volume 106.9 Mean Corpuscular Hemoglobin 35.6 Mean Corpuscular Hemoglobin Concent 33.3 Red Cell Distribution Width 14.9 Platelet Count 86 Mean Platelet Volume 10.3 Neutrophils (%) (Auto) 51.8 Lymphocytes (%) (Auto) 34.7 Monocytes (%) (Auto) 11.1 Eosinophils (%) (Auto) 1.7 Basophils (%) (Auto) 0.7 Neutrophils # (Auto) 2.6 Lymphocytes # (Auto) 1.7 Monocytes # (Auto) 0.6 Eosinophils # (Auto) 0.1 Basophils # (Auto) 0.0 CBC Comment AUTO DIFF Differential Comment AUTO DIFF CONFIRMED Platelet Estimate LOW Platelet Morphology Comment ENLARGED Prothrombin Time 15.2 Prothromb Time International Ratio 1.5 Activated Partial Thromboplast Time 33.2 Blood Urea Nitrogen 19 Creatinine 1.17 Random Glucose 137 Total Protein 8.3 Albumin 2.7 Calcium Level 8.8 Alkaline Phosphatase 125 Aspartate Amino Transf (AST/SGOT) 143 Alanine Aminotransferase (ALT/SGPT) 74 Total Bilirubin 4.5 Direct Bilirubin 2.8 Sodium Level 140 Potassium Level 4.1 Chloride Level 107 Carbon Dioxide Level 23.2 Anion Gap 10 Estimat Glomerular Filtration Rate 48 Indirect Bilirubin 1.7 Ammonia 93 Troponin I LESS THAN 0.02 Ethyl Alcohol Level LESS THAN 3 Result Diagram: 06/19/17 1300 06/19/17 1300 Caprinalem VTE Risk Assessment Caprini VTE Risk Assessment: No/Low Risk (score <= 1) Caprini Risk Assessment Model Point Value = 1 Point Value = 2 Point Value = 3 Point Value = 5 Age 41-60 Minor surgery BMI > 25 kg/m2 Swollen legs Varicose veins or History of unexplained or recurrent spontaneous Oral contraceptives or hormone replacement Sepsis (< 1 month) Serious lung disease, including pneumonia (< 1 month) Abnormal pulmonary function Acute myocardial infarction Congestive heart failure (< 1 month) History of inflammatory bowel disease Medical patient at bed rest Age 61-74 Arthroscopic surgery Major open surgery (> 45 min) Laparoscopic surgery (> 45 min) Malignancy Confined to bed (> 72 hours) Immobilizing plaster cast Central venous access Age >= 75 History of VTE Family history of VTE Factor V Leiden Prothrombin [id number] Lupus anticoagulant Anticardiolipin antibodies Elevated serum homocysteine Heparin-induced thrombocytopenia Other congenital or acquired thrombophilia Stroke (< 1 month) Elective arthroplasty Hip, pelvis, or leg fracture Acute spinal cord injury (< 1 month) Prophylaxis Regimen Total Risk Factor Score Risk Level Prophylaxis Regimen 0-1 Low Early ambulation 2 Moderate Order ONE of the following: *Sequential Compression Device (SCD) *Heparin 5000 units SQ BID 3-4 Higher Order ONE of the following medications: *Heparin 5000 units SQ TID *Enoxaparin/Lovenox 40 mg SQ daily (WT < 150 kg, CrCl > 30 mL/min) *Enoxaparin/Lovenox 30 mg SQ daily (WT < 150 kg, CrCl > 10-29 mL/min) *Enoxaparin/Lovenox 30 mg SQ BID (WT < 150 kg, CrCl > 30 mL/min) AND/OR *Sequential Compression Device (SCD) 5 or more Highest Order ONE of the following medications: *Heparin 5000 units SQ TID (Preferred with Epidurals) *Enoxaparin/Lovenox 40 mg SQ daily (WT < 150 kg, CrCl > 30 mL/min) *Enoxaparin/Lovenox 30 mg SQ daily (WT < 150 kg, CrCl > 10-29 mL/min) *Enoxaparin/Lovenox 30 mg SQ BID (WT < 150 kg, CrCl > 30 mL/min) AND *Sequential Compression Device (SCD) Assessment and Plan Problem List: (1) Liver failure ICD Codes: K72.90 - Hepatic failure, unspecified without coma Status: Acute Plan: 1. pt with evidence for liver failure. hepatic encephalopathy. falls due to encephalopathy. she admits to taking excessive amt's of tylenol daily for over a year. She also has a hx of etoh abuse and is currently very elusive to the exact amt still using. I spoke to family who just arrived in town and they are suspicious of etoh excess. she also has thrombocytopenia. spoke to pcp who says GI was concerned for autoimmune hepatitis and recommended liver bx and pt refused. 2. recent dx of celiac dz with iron def anemia. some degree of lft abnormality may also be related. 3. dm2 4. htn plan. hold oha and bp meds due to nml bg and low/nml bp scheduled lactulose for encephalopathy Pt eval to reassess balance. pt with multiple bruises from falls at home Pt had been seen previously by [facility]...she at the moment refuses to be seen by that group... pt says she is changing Insurance plans next week and she will lose her pcp and she will seek a new GI group. I will call her pcp to see if any effort to coordinate her care to new physicians is possible. (2) Hepatic encephalopathy ICD Codes: K72.90 - Hepatic failure, unspecified without coma Status: Acute (3) Celiac disease ICD Codes: K90.0 - Celiac disease Status: Chronic (4) Iron deficiency anemia ICD Codes: D50.9 - Iron deficiency anemia, unspecified Status: Chronic (5) DM (diabetes mellitus) ICD Codes: E11.9 - Type 2 diabetes mellitus without complications Status: Chronic (6) HTN (hypertension) ICD Codes: I10 - Essential (primary) hypertension Status: Chronic (7) CKD (chronic kidney disease) stage 3, GFR 30-59 ml/min ICD Codes: N18.3 - Chronic kidney disease, stage 3 (moderate) Status: Chronic Physician Certification 2 Midnight Certification Type: Admission for Inpatient Services Order for Inpatient Services 3The services are ordered in accordance with Medicare regulations or non- Medicare payer requirements, as applicable. In the case of services not specified as inpatient-only, they are appropriately provided as inpatient services in accordance with the 2-midnight benchmark. Estimated LOS (days): 3 3 days is the estimated time the patient will need to remain in the hospital, assuming treatment plan goals are met and no additional complications. Post-Hospital Plan: Home Problem Qualifiers (1) Liver failure: Qualified Codes: K72.00 - Acute and subacute hepatic failure without coma (2) DM (diabetes mellitus): (3) HTN (hypertension): Qualified Codes: I10 - Essential (primary) hypertension Bj Herrera MD Jun 19, 2017 16:23
--- NOTE | 2017-06-19 16:23 | RADRPT ---
EXAM DATE/TIME: 06/19/2017 15:56 [facility] COMPARISON: No previous studies available for comparison. INDICATIONS : Right upper qaudrant pain. MEDICAL HISTORY : Hypothyroidism. Hypertension. Diabetes. SURGICAL HISTORY : Laparoscopy. Colonoscopy. ENCOUNTER: Subsequent ACUITY: 1 day PAIN SCORE: 0/10 LOCATION: Right upper quadrant MEASUREMENTS: LIVER: 20.1 cm length COMMON DUCT: 4 mm RIGHT KIDNEY: 10.5 x 4.7 x 4.4 cm FINDINGS: LIVER: Enlarged liver. No focal mass. COMMON DUCT: No intraluminal mass or stone visualized. GALLBLADDER: Contains no stones, demonstrates no wall thickening or pericholecystic fluid. PANCREAS: The visualized portions are within normal limits. RIGHT KIDNEY: No evidence of hydronephrosis, stone, or mass. CONCLUSION: Hepatomegaly. Evelio Ferro MD on June 19, 2017 at 16:20 Board Certified Radiologist. This report was verified electronically.
[2017-06-19] MEDS: INSULIN ASPART SUPPLEMENTAL SCALE SQ SCH ×2 (16:58→20:51)
[2017-06-19] MEDS: traMADol HCL 50 MG TAB PO PRN (16:59)
[2017-06-19 17:56] VITALS: BP 123/64; PULSE 64; RESP 16; O2SAT 97
[2017-06-19 19:21] VITALS: BP 105/61; PULSE 79; RESP 18; TEMP 97.8; O2SAT 97
[2017-06-19] MEDS: LACTULOSE SYRUP 20 GM/30 ML CUP PO SCH ×2 (20:51→23:58)
[2017-06-19] MEDS: SODIUM CHLORIDE 0.9% FLUSH 10 ML FLUSH IV FLUSH PRN (20:52)
[2017-06-19] MEDS: FERROUS SULFATE 325 MG (65 MG ELEMENTAL IRON) TAB PO SCH (20:54)
[2017-06-20] VITALS: BP 106/60; PULSE 69; RESP 17; TEMP 96.8; O2SAT 98
[2017-06-20] MEDS: traMADol HCL 50 MG TAB PO PRN ×5 (02:50→23:46)
[2017-06-20 04:00] VITALS: BP 97/59; PULSE 67; RESP 16; TEMP 97; O2SAT 96
[2017-06-20] MEDS: LACTULOSE SYRUP 20 GM/30 ML CUP PO SCH ×4 (06:23→23:46)
[2017-06-20 06:47] LABS: ALBUMIN 2.5 GM/DL (3.4-5.0); BICARBONATE 25.4 MEQ/L (21.0-32.0); CREATININE 1.24 MG/DL (0.50-1.00); DIRECT BILIRUBIN ADULT 2.6 MG/DL (0.0-0.2)
[2017-06-20 06:49] LABS: INDIRECT BILIRUBIN 1.4 MG/DL (0.0-0.8); TOTAL PROTEIN 7.8 GM/DL (6.4-8.2)
[2017-06-20 08:00] VITALS: BP 97/57; PULSE 90; RESP 16; TEMP 97; O2SAT 95
[2017-06-20] MEDS: INSULIN ASPART SUPPLEMENTAL SCALE SQ SCH ×4 (08:00→20:40)
[2017-06-20] MEDS: FERROUS SULFATE 325 MG (65 MG ELEMENTAL IRON) TAB PO SCH ×2 (08:39→16:32)
[2017-06-20] MEDS: MULTIVITAMIN TAB PO SCH (08:39)
[2017-06-20] MEDS: CHOLECALCIFEROL (VIT D3) 1000 UNIT TAB PO SCH (08:39)
[2017-06-20] MEDS: NADOLOL 20 MG TAB PO SCH (08:40)
[2017-06-20] MEDS ORDERED: LOSARTAN 50 MG TAB PO SCH (09:00)
--- NOTE | 2017-06-20 11:09 | HHI.PR ---
Subjective Remarks maybe a little more oriented today. eager for d/c Objective Vitals mild encephalopathy heart reg lung cta abd s/nt ext no pitting left back ecchymosis Vital Signs Date Time Temp Pulse Resp B/P (MAP) Pulse Ox O2 Delivery O2 Flow Rate FiO2 06/20/17 08:00 97.0 90 16 97/57 (70) 95 06/20/17 04:00 97.0 67 16 97/59 (72) 96 06/20/17 00:00 96.8 69 17 106/60 (75) 98 06/19/17 19:21 97.8 79 18 105/61 (76) 97 06/19/17 19:10 06/19/17 17:56 64 16 123/64 (83) 97 Room Air 06/19/17 15:59 16 06/19/17 14:47 63 16 111/63 (79) 97 Room Air 06/19/17 13:02 20 94 Room Air 06/19/17 12:37 98.0 70 16 139/66 (90) 96 Result Diagram: 06/19/17 1300 06/20/17 0520 A/P Problem List: (1) Liver failure ICD Codes: K72.90 - Hepatic failure, unspecified without coma Status: Acute Plan: 1. pt with evidence for liver failure. hepatic encephalopathy. falls due to encephalopathy. she admits to taking excessive amt's of tylenol daily for over a year. She also has a hx of etoh abuse and is currently very elusive to the exact amt still using. I spoke to family last night who just arrived in town and they are suspicious of etoh excess. she also has thrombocytopenia. 2. recent dx of celiac dz with iron def anemia. some degree of lft abnormality may also be related. 3. dm2 4. htn plan. hold oha and bp meds due to nml bg and low/nml bp scheduled lactulose for encephalopathy Pt eval to reassess balance. pt with multiple bruises from falls at home Pt had been seen previously by [facility]...she at the moment refuses to be seen by that group... pt says she is changing Insurance plans next week and she will lose her pcp and she will seek a new GI group. I will call her pcp to see if any effort to coordinate her care to new physicians is possible. addendum: spoke to her pcp Dr Sanket Walker. Pt did see juvenile probation officer Dr Mclean and GI Dr Blackmon recently. They suspected autoimmune hepatitis and recommended liver bx. After that pcp says pt basically withdrew and refused to go back to those doctors. In addition she refused to let pcp contact daughter to help her out in this situation. She had refused to take the lactulose for many weeks after prescribing. complicating this pt will lose all of her current doctors due to Insurance changing Jun 26. Dr Walker has given me GI doctor recommendations to pass along to pt and family going forward. As above daughter is in town now and I will include her in the care of our patient. (2) Hepatic encephalopathy ICD Codes: K72.90 - Hepatic failure, unspecified without coma Status: Acute (3) Celiac disease ICD Codes: K90.0 - Celiac disease Status: Chronic (4) Iron deficiency anemia ICD Codes: D50.9 - Iron deficiency anemia, unspecified Status: Chronic (5) DM (diabetes mellitus) ICD Codes: E11.9 - Type 2 diabetes mellitus without complications Status: Chronic (6) HTN (hypertension) ICD Codes: I10 - Essential (primary) hypertension Status: Chronic (7) CKD (chronic kidney disease) stage 3, GFR 30-59 ml/min ICD Codes: N18.3 - Chronic kidney disease, stage 3 (moderate) Status: Chronic Problem Qualifiers (1) Liver failure: Qualified Codes: K72.00 - Acute and subacute hepatic failure without coma Bj Herrera MD Jun 20, 2017 11:09
[2017-06-20 12:00] VITALS: BP 104/54; PULSE 63; RESP 18; TEMP 96.8; O2SAT 93
[2017-06-20 13:43] LABS: BACTERIA, URINE RARE /hpf; BILIRUBIN, URINE SMALL (NEG); BLOOD, URINE NEG (NEG); GLUCOSE,URINE NEG (NEG); HYALINE CAST, URINE 7 /lpf (RARE); KETONE, URINE NEG (NEG); MUCUS URINE FEW /lpf (OCC); NITRITE,URINE NEG (NEG); SQUAMOUS EPITHELIAL CELL URINE 7 /hpf (0-5); TRANSITIONAL EPI CELLS, URINE <1 /hpf; URINE COLOR DARK-YELLOW (YELLW/STRAW); URINE LEUKOCYTE ESTERASE MOD (NEG)
[2017-06-20 16:00] VITALS: BP 114/69; PULSE 62; RESP 16; TEMP 96.4; O2SAT 96
--- NOTE | 2017-06-20 17:09 | EKG ---
Date Performed: 06/19/2017 Time Performed: 13:15:40 PTAGE: 51 years EKG: Sinus rhythm NORMAL ECG NO PREVIOUS TRACING DOCTOR: Lavonne Bruner Interpretating Date/Time 06/20/2017 17:09:04
[2017-06-20 21:56] VITALS: BP 104/57; PULSE 68; RESP 18; TEMP 97.2; O2SAT 96
[2017-06-21 01:01] VITALS: BP 112/64; PULSE 67; RESP 18; TEMP 97.2; O2SAT 98
[2017-06-21] MEDS: traMADol HCL 50 MG TAB PO PRN ×3 (04:58→16:49)
[2017-06-21] MEDS: LACTULOSE SYRUP 20 GM/30 ML CUP PO SCH ×2 (04:58→20:44)
[2017-06-21 07:53] VITALS: BP 128/60; PULSE 74; RESP 19; TEMP 97.2; O2SAT 97
[2017-06-21] MEDS: INSULIN ASPART SUPPLEMENTAL SCALE SQ SCH ×4 (08:00→20:44)
[2017-06-21 08:07] LABS: ALBUMIN 2.8 GM/DL (3.4-5.0); BICARBONATE 24.3 MEQ/L (21.0-32.0); CALCIUM 9.2 MG/DL (8.5-10.1); CREATININE 1.35 MG/DL (0.50-1.00); DIRECT BILIRUBIN ADULT 2.6 MG/DL (0.0-0.2)
[2017-06-21 08:09] LABS: INDIRECT BILIRUBIN 1.5 MG/DL (0.0-0.8); TOTAL BILIRUBIN ADULT 4.1 MG/DL (0.2-1.0); TOTAL PROTEIN 8.3 GM/DL (6.4-8.2)
[2017-06-21] MEDS: FERROUS SULFATE 325 MG (65 MG ELEMENTAL IRON) TAB PO SCH ×2 (08:19→16:49)
[2017-06-21] MEDS: MULTIVITAMIN TAB PO SCH (08:20)
[2017-06-21] MEDS: NADOLOL 20 MG TAB PO SCH (08:20)
[2017-06-21] MEDS: CHOLECALCIFEROL (VIT D3) 1000 UNIT TAB PO SCH (08:20)
--- NOTE | 2017-06-21 10:12 | HHI.PR ---
Subjective Remarks more epigastric pain today. vomited clear liquid while I was present. says she will have trouble eating. pt reports 15bm yesterday with lactulose Objective Vitals nauseated. dry heaving. heart reg lung cta abd mild epigastric tenderness. bs. no rebound ext no edema Vital Signs Date Time Temp Pulse Resp B/P (MAP) Pulse Ox O2 Delivery O2 Flow Rate FiO2 06/21/17 07:53 97.2 74 19 128/60 (82) 97 06/21/17 01:01 97.2 67 18 112/64 (80) 98 06/20/17 21:56 97.2 68 18 104/57 (73) 96 06/20/17 16:00 96.4 62 16 114/69 (84) 96 06/20/17 12:00 96.8 63 18 104/54 (71) 93 Result Diagram: 06/19/17 1300 06/21/17 0720 A/P Problem List: (1) Liver failure ICD Codes: K72.90 - Hepatic failure, unspecified without coma Status: Acute Plan: 1. pt with evidence for liver failure. hepatic encephalopathy. falls due to encephalopathy. she admits to taking excessive amt's of tylenol daily for over a year. She also has a hx of etoh abuse and is currently very elusive to the exact amt still using. I spoke to family who just arrived in town and they are suspicious of etoh excess. she also has thrombocytopenia. spoke to pcp who says GI was concerned for autoimmune hepatitis and recommended liver bx and pt refused. 2. recent dx of celiac dz with iron def anemia. some degree of lft abnormality may also be related. 3. dm2 4. htn plan. hold oha and bp meds due to nml bg and low/nml bp scheduled lactulose for encephalopathy giving alot of bm's..but rising ammonia..try rifaximin here today but will not be able to afford at d/c unable to d/c pt home today..pt with epigastric pain and vomiting now. place on liquid diet as tolererated..zofran/protonix/simethicone Will update daughter when she arrives. Pt eval to reassess balance. pt with multiple bruises from falls at home Pt had been seen previously by [facility]...she at the moment refuses to be seen by that group... pt says she is changing Insurance plans next week and she will lose her pcp and she will seek a new GI group I spoke to pcp who says she refused liver bx. Pt says she will do it once established by new belt and link shop supervisor (2) Hepatic encephalopathy ICD Codes: K72.90 - Hepatic failure, unspecified without coma Status: Acute (3) Celiac disease ICD Codes: K90.0 - Celiac disease Status: Chronic (4) Iron deficiency anemia ICD Codes: D50.9 - Iron deficiency anemia, unspecified Status: Chronic (5) DM (diabetes mellitus) ICD Codes: E11.9 - Type 2 diabetes mellitus without complications Status: Chronic (6) HTN (hypertension) ICD Codes: I10 - Essential (primary) hypertension Status: Chronic (7) CKD (chronic kidney disease) stage 3, GFR 30-59 ml/min ICD Codes: N18.3 - Chronic kidney disease, stage 3 (moderate) Status: Chronic Problem Qualifiers (1) Liver failure: Qualified Codes: K72.00 - Acute and subacute hepatic failure without coma Bj Herrera MD Jun 21, 2017 10:12
[2017-06-21] MEDS ORDERED: ONDANSETRON HCL 4 MG/2 ML VIAL IV PUSH ONE (10:30)
[2017-06-21] MEDS: SODIUM CHLOR 0.9% 1000 ML INJ 1,000 ML IV SCH (10:30)
[2017-06-21] MEDS: PANTOPRAZOLE SODIUM 40 MG VIAL IV PUSH SCH ×2 (10:52→20:45)
[2017-06-21 12:00] VITALS: BP 148/89; PULSE 75; RESP 18; TEMP 96.9; O2SAT 95
[2017-06-21] MEDS: SIMETHICONE 125 MG CHEWABLE TAB PO SCH ×2 (13:21→20:45)
[2017-06-21] MEDS: RIFAXIMIN 550 MG TAB PO SCH ×2 (13:22→20:44)
[2017-06-21] MEDS ORDERED: ONDANSETRON HCL 4 MG/2 ML VIAL IV PUSH PRN (14:00)
[2017-06-21 16:00] VITALS: BP 98/52; PULSE 69; RESP 18; TEMP 97.8; O2SAT 95
[2017-06-21 20:27] VITALS: BP 99/64; PULSE 81; RESP 17; TEMP 97.8; O2SAT 96
[2017-06-22] VITALS (7 sets, daily range): BP systolic 91–153; BP diastolic 52–86; PULSE 65–93; RESP 16–19; TEMP 96.2–98.3; O2SAT 95–100
[2017-06-22] MEDS: SODIUM CHLOR 0.9% 1000 ML INJ 1,000 ML IV SCH ×3 (00:48→21:32)
[2017-06-22] MEDS: SIMETHICONE 125 MG CHEWABLE TAB PO SCH ×3 (05:36→21:24)
[2017-06-22 06:46] LABS: ALBUMIN 2.6 GM/DL (3.4-5.0); CALCIUM 8.7 MG/DL (8.5-10.1); CREATININE 1.56 MG/DL (0.50-1.00); DIRECT BILIRUBIN ADULT 2.5 MG/DL (0.0-0.2)
[2017-06-22 06:49] LABS: INDIRECT BILIRUBIN 2.1 MG/DL (0.0-0.8); TOTAL BILIRUBIN ADULT 4.6 MG/DL (0.2-1.0); TOTAL PROTEIN 8.2 GM/DL (6.4-8.2)
[2017-06-22] MEDS: INSULIN ASPART SUPPLEMENTAL SCALE SQ SCH ×4 (08:00→20:18)
[2017-06-22] MEDS: FERROUS SULFATE 325 MG (65 MG ELEMENTAL IRON) TAB PO SCH ×2 (09:27→16:55)
[2017-06-22] MEDS: LACTULOSE SYRUP 20 GM/30 ML CUP PO SCH ×2 (09:27→20:26)
[2017-06-22] MEDS: RIFAXIMIN 550 MG TAB PO SCH ×2 (09:27→20:26)
[2017-06-22] MEDS: MULTIVITAMIN TAB PO SCH (09:27)
[2017-06-22] MEDS: NADOLOL 20 MG TAB PO SCH (09:27)
[2017-06-22] MEDS: CHOLECALCIFEROL (VIT D3) 1000 UNIT TAB PO SCH (09:27)
[2017-06-22] MEDS: SODIUM CHLORIDE 0.9% FLUSH 10 ML FLUSH IV FLUSH PRN (09:45)
[2017-06-22] MEDS: PANTOPRAZOLE SODIUM 40 MG VIAL IV PUSH SCH ×2 (09:46→21:31)
[2017-06-22] MEDS: traMADol HCL 50 MG TAB PO PRN ×3 (11:00→21:28)
--- NOTE | 2017-06-22 11:02 | HHI.PR ---
Subjective Remarks TOLERATING FULL LIQUID MORE ORIENTED TODAY. DAUGHTER AGREES. DAUGHTER WILL BE LEAVING TOWN AND SHE REALLY WANTS GI TO SAY NOW IF BX NEEDED OF LIVER Objective Vitals oriented heart reg lung cta abd s/nt ext no pitting Vital Signs Date Time Temp Pulse Resp B/P (MAP) Pulse Ox O2 Delivery O2 Flow Rate FiO2 06/22/17 08:00 96.3 93 16 153/86 (108) 98 06/22/17 04:15 97.7 74 19 95/58 (70) 96 06/22/17 00:00 98.2 75 17 91/60 (70) 95 06/21/17 20:27 97.8 81 17 99/64 (76) 96 06/21/17 17:49 16 06/21/17 16:00 97.8 69 18 98/52 (67) 95 06/21/17 12:00 96.9 75 18 148/89 (108) 95 Result Diagram: 06/19/17 1300 06/22/17 0601 A/P Problem List: (1) Liver failure ICD Codes: K72.90 - Hepatic failure, unspecified without coma Status: Acute Plan: 1. pt with evidence for liver failure. hepatic encephalopathy. falls due to encephalopathy. she admits to taking excessive amt's of tylenol daily for over a year. She also has a hx of etoh abuse and is currently very elusive to the exact amt still using. I spoke to family who just arrived in town and they are suspicious of etoh excess. she also has thrombocytopenia. spoke to pcp who says GI (DR BIRD) was concerned for autoimmune hepatitis and recommended liver bx and pt refused at the time 2. recent dx of celiac dz with iron def anemia. some degree of lft abnormality may also be related. 3. dm2 4. htn plan. continue gentle ivf and monitor cr as it is slowly rising..could just be from lactulose and diarrhea. hold oha and bp meds due to nml bg and low/nml bp scheduled lactulose for encephalopathy giving alot of bm's..but rising ammonia...lactulose lowered and rifaxamin added....but will not be able to afford at d/c n/v from yesterday better. advance diet. .zofran/protonix/simethicone Pt eval to reassess balance. pt with multiple bruises from falls at home Pt had been seen previously by [facility]...she refused to be seen by that group... pt says she is changing Insurance plans next week and she will lose her pcp and she will seek a new GI group I spoke to pcp who says she refused liver bx. TODAY PT DAUGHTER HERE FROM OUT OF TOWN. They would like GI eval to decide if liver bx warranted at this time as suggested previously by Dr Bird...pt is considering it now. If so will consult IR...if not then plan for d/c and f/u outpt. (2) Hepatic encephalopathy ICD Codes: K72.90 - Hepatic failure, unspecified without coma Status: Acute (3) Celiac disease ICD Codes: K90.0 - Celiac disease Status: Chronic (4) Iron deficiency anemia ICD Codes: D50.9 - Iron deficiency anemia, unspecified Status: Chronic (5) DM (diabetes mellitus) ICD Codes: E11.9 - Type 2 diabetes mellitus without complications Status: Chronic (6) HTN (hypertension) ICD Codes: I10 - Essential (primary) hypertension Status: Chronic (7) CKD (chronic kidney disease) stage 3, GFR 30-59 ml/min ICD Codes: N18.3 - Chronic kidney disease, stage 3 (moderate) Status: Chronic Problem Qualifiers (1) Liver failure: Qualified Codes: K72.00 - Acute and subacute hepatic failure without coma Bj Herrera MD Jun 22, 2017 11:01
[2017-06-22] MEDS: CIPROFLOXACIN 250 MG TAB PO SCH (21:24)
[2017-06-23] VITALS (8 sets, daily range): BP systolic 92–141; BP diastolic 45–71; PULSE 64–73; RESP 17–20; TEMP 96.5–98.1; O2SAT 95–99
[2017-06-23] MEDS: traMADol HCL 50 MG TAB PO PRN ×3 (03:37→15:02)
[2017-06-23] MEDS: SIMETHICONE 125 MG CHEWABLE TAB PO SCH ×3 (05:45→22:30)
[2017-06-23 05:48] LABS: BICARBONATE 20.9 MEQ/L (21.0-32.0); CALCIUM 8.5 MG/DL (8.5-10.1); CREATININE 0.98 MG/DL (0.50-1.00)
[2017-06-23] MEDS: INSULIN ASPART SUPPLEMENTAL SCALE SQ SCH ×4 (08:00→21:00)
[2017-06-23] MEDS: NADOLOL 20 MG TAB PO SCH (08:24)
[2017-06-23] MEDS: MULTIVITAMIN TAB PO SCH (08:24)
[2017-06-23] MEDS: FERROUS SULFATE 325 MG (65 MG ELEMENTAL IRON) TAB PO SCH ×2 (08:24→18:21)
[2017-06-23] MEDS: CIPROFLOXACIN 250 MG TAB PO SCH ×2 (08:24→22:17)
[2017-06-23] MEDS: CHOLECALCIFEROL (VIT D3) 1000 UNIT TAB PO SCH (08:24)
[2017-06-23] MEDS: LACTULOSE SYRUP 20 GM/30 ML CUP PO SCH ×2 (08:26→22:17)
[2017-06-23] MEDS: RIFAXIMIN 550 MG TAB PO SCH ×2 (08:28→22:30)
--- NOTE | 2017-06-23 08:32 | HHI.PR ---
Subjective Remarks No new complaints Pt concerned about pain with the liver biopsy but is willing to proceed with it today Objective Vitals Vital Signs Date Time Temp Pulse Resp B/P (MAP) Pulse Ox O2 Delivery O2 Flow Rate FiO2 06/23/17 03:52 98.1 73 17 107/67 (80) 98 06/22/17 23:15 97.6 70 17 100/52 (68) 98 06/22/17 20:45 98.3 70 16 108/58 (75) 100 06/22/17 16:15 97.0 65 16 109/65 (80) 98 06/22/17 12:00 96.2 68 16 101/59 (73) 96 Result Diagram: 06/19/17 1300 06/23/17 0453 Other Results Laboratory Tests Test 06/22/17 06:01 06/23/17 04:53 Blood Urea Nitrogen 25 MG/DL 15 MG/DL Creatinine 1.56 MG/DL 0.98 MG/DL Random Glucose 92 MG/DL 76 MG/DL Total Protein 8.2 GM/DL Albumin 2.6 GM/DL Calcium Level 8.7 MG/DL 8.5 MG/DL Alkaline Phosphatase 98 U/L Aspartate Amino Transf (AST/SGOT) 138 U/L Alanine Aminotransferase (ALT/SGPT) 69 U/L Total Bilirubin 4.6 MG/DL Direct Bilirubin 2.5 MG/DL Sodium Level 140 MEQ/L 140 MEQ/L Potassium Level 4.3 MEQ/L 3.9 MEQ/L Chloride Level 109 MEQ/L 108 MEQ/L Carbon Dioxide Level 21.0 MEQ/L 20.9 MEQ/L Anion Gap 10 MEQ/L 11 MEQ/L Estimat Glomerular Filtration Rate 35 ML/MIN 59 ML/MIN Indirect Bilirubin 2.1 MG/DL Ammonia 66 MCMOL/L 62 MCMOL/L Imaging Last Impressions Head CT 06/19/17 1251 Signed Impressions: Service Date/Time: Monday, June 19, 2017 14:09 - CONCLUSION: Negative for acute process. Ronaldo Potter MD FACR Chest X-Ray 06/19/17 1251 Signed Impressions: Service Date/Time: Monday, June 19, 2017 13:10 - CONCLUSION: Minimal nonspecific parenchymal changes left base. Ronaldo Potter MD FACR Gall Bladder Ultrasound 06/19/17 0000 Signed Impressions: Service Date/Time: Monday, June 19, 2017 15:56 - CONCLUSION: Hepatomegaly. Evelio Ferro MD Objective Remarks General: NAD, Alert and oriented, some mild confusion Chest: CTA Cardiac: Regular Abd: +BS, soft mildly distended, nontender Ext: No edema A/P Problem List: (1) Liver failure ICD Codes: K72.90 - Hepatic failure, unspecified without coma Status: Acute Plan: 1. Pt with evidence for liver failure, hepatic encephalopathy, and falls due to encephalopathy. she admits to taking excessive amt's of Tylenol daily for over a year. She also has a hx of EtOH abuse and is currently very elusive to the exact amt still using. I spoke to family who just arrived in town and they are suspicious of EtOH excess. She also has thrombocytopenia. Spoke to PCP who says GI (DR BLACKMON) was concerned for autoimmune hepatitis and recommended liver bx and pt refused at the time. - Cont. scheduled lactulose 30mL BID for encephalopathy - Ammonia level 62 today - Cont. Rifaximin 500mg po BID, but will not likely be able to afford at d/c - Cont. Zofran/Protonix/Simethicone - PT recommending HHC/PT - Pt had been seen previously by [facility], she refused to be seen by that group but pt says she is changing Insurance plans next week and she will lose her pcp and she will seek a new GI group. The case was discussed with her daughter on 06/22 and she requested GI eval to decide if liver bx was warranted at this time as suggested previously by Dr Blackmon. Pt was seen by Dr. Oswald on 06/22 and he did recommend liver biopsy. This was ordered and pt is currently agreeable. - CT guided liver biopsy for today 2. Recent dx of celiac dz with iron def anemia. some degree of LFT abnormality may also be related. 3. DM, type 2 - hold OHA due to normal blood glucose levels 4. HTN - Hold antihypertensive meds due to low/normal BP 5. Acute renal insufficiency - Labs are improving with gentle IVF - Monitor labs - Could just be from lactulose and diarrhea. (2) Hepatic encephalopathy ICD Codes: K72.90 - Hepatic failure, unspecified without coma Status: Acute (3) Celiac disease ICD Codes: K90.0 - Celiac disease Status: Chronic (4) Iron deficiency anemia ICD Codes: D50.9 - Iron deficiency anemia, unspecified Status: Chronic (5) DM (diabetes mellitus) ICD Codes: E11.9 - Type 2 diabetes mellitus without complications Status: Chronic (6) HTN (hypertension) ICD Codes: I10 - Essential (primary) hypertension Status: Chronic (7) CKD (chronic kidney disease) stage 3, GFR 30-59 ml/min ICD Codes: N18.3 - Chronic kidney disease, stage 3 (moderate) Status: Chronic Assessment and Plan Patient examined. Assessment and plan formulated with Yakelin Keene PA-C. I agree with the above. hepatic failure. tylenol/etoh suspected GI concerned about autoimmune hepatitis and recc liver bx. that is ordered for today. cont lactulose/rifaxamin for now. celiac dz/iron def anemia. Problem Qualifiers (1) Liver failure: Qualified Codes: K72.00 - Acute and subacute hepatic failure without coma Yakelin Keene Jun 23, 2017 08:32 Bj Herrera MD Jun 23, 2017 12:49
[2017-06-23] MEDS: PANTOPRAZOLE SODIUM 40 MG VIAL IV PUSH SCH ×2 (10:08→22:31)
[2017-06-23] MEDS ORDERED: LORazepam 2 MG/ML VIAL IV PUSH ONE (10:45)
[2017-06-23] MEDS ORDERED: MIDAZOLAM HCL 2 MG/2 ML VIAL ONE (15:26)
[2017-06-23] MEDS ORDERED: LIDOCAINE HCL 1% 20 ML VIAL ONE (15:32)
--- NOTE | 2017-06-23 16:31 | PD.RAD ---
Post CT Procedure Prog Note Pre Procedure Diagnosis: (1) Enlarged liver (2) Abnormal liver enzymes Post Procedure Diagnosis: (1) Enlarged liver (2) Abnormal liver enzymes Procedure Date: Jun 23, 2017 Supervising Radiologist: Rafael Pan Anesthesia: Local, Conscious Sedation Plan of Activity Patient to Unit: Nursing Unit Patient Condition: Good See PACS Report for procedural detail/treatment Biopsy Imaging Guidance: CT Side: Right Biopsy Procedure: Liver Specimen: Core Biopsy Rafael Pan MD Jun 23, 2017 16:31
--- NOTE | 2017-06-23 16:57 | RADRPT ---
EXAM DATE/TIME: 06/23/2017 16:14 [facility] COMPARISON: No previous studies available for comparison. INDICATIONS : Liver function. SEDATION TIME: 30 minutes BIOPSY SITE: liver MEDICATION(S): 1.) 4 mg midazolam (Versed) IV 2.) 200 mcg fentanyl (Sublimaze) DEVICE(S): 1.) 18 gauge BioPince needle MEDICAL HISTORY : Hypothyroidism. SURGICAL HISTORY : Abdomen sx. ENCOUNTER: Initial ACUITY: 1 day PAIN SCORE: 1/10 LOCATION: Right lateral side liver A total of two core specimen(s) were obtained and sent to the laboratory for pathologic evaluation. PROCEDURE: 1. CT guided liver biopsy. Prior to the procedure informed consent was obtained. Any appropriate prior imaging studies were rev iewed. Using automated exposure control and adjustment of the mA and/or kV according to patient size, radiat ion dose was kept as low as reasonably achievable to obtain optimal diagnostic quality images. DICOM format image data is available electronically for review and comparison. The site was prepped in a sterile fashion. Full sterile technique was used, including cap, mask, vance rile gloves and gown and a large sterile sheet. Hand hygiene and 2% chlorhexidine and/or betadine/al cohol prep was utilized per protocol for cutaneous antisepsis. The skin and subcutaneous tissues wer e infiltrated with local anesthetic solution. With CT guidance the previously identified target was localized. Biopsy was performed using the presc ribed needle as above. Adequate hemostasis was obtained with compression at the puncture site. Follow-up CT scan reveals a small contained subcapsular hematoma. The patient tolerated the procedure well and there were no complications. The patient was returned to the Radiology Outpatient Unit in stable condition. CONCLUSION: CT guided liver biopsy completed. Small post biopsy subcapsular hematoma along the right hepatic lobe noted. Findings discussed with ordering physician. Rafael Pan MD on June 23, 2017 at 16:49 Board Certified Radiologist. This report was verified electronically.
[2017-06-23] MEDS ORDERED: HYDROmorphone HCL 2 MG TAB PO PRN (18:00)
[2017-06-23] MEDS: SODIUM CHLOR 0.9% 1000 ML INJ 1,000 ML IV SCH (19:42)
[2017-06-24] VITALS: BP 96/50; PULSE 91; RESP 18; TEMP 97.8; O2SAT 94
[2017-06-24] MEDS: traMADol HCL 50 MG TAB PO PRN ×4 (04:37→21:31)
[2017-06-24] MEDS: SIMETHICONE 125 MG CHEWABLE TAB PO SCH ×3 (04:37→21:31)
[2017-06-24 07:09] LABS: AUTOMATED NEUTROPHIL # 2.1 TH/MM3 (1.8-7.7); BASOPHIL % 0.7 % (0.0-2.0); EOSINOPHIL # 0.1 TH/MM3 (0-0.4); EOSINOPHIL % 1.4 % (0.0-4.0); HEMATOCRIT 26.5 % (35.0-46.0); HEMOGLOBIN 9.1 GM/DL (11.6-15.3); LYMPH % 34.1 % (9.0-44.0); LYMPHOCYTE # 1.5 TH/MM3 (1.0-4.8); MEAN CELL VOLUME 106.9 FL (80.0-100.0); MEAN CORPUSCULAR HEMOGLOBIN 36.6 PG (27.0-34.0); MEAN CORPUSCULAR HGB CONC 34.2 % (32.0-36.0); MEAN PLATELET VOLUME 10.6 FL (7.0-11.0); MONO % 14.9 % (0.0-8.0); MONOCYTE # 0.6 TH/MM3 (0-0.9); NEUT % 48.9 % (16.0-70.0); PLATELET COUNT 83 TH/MM3 (150-450); RED BLOOD COUNT 2.48 MIL/MM3 (4.00-5.30); RED CELL DISTRIBUTION WIDTH 14.7 % (11.6-17.2); WHITE BLOOD COUNT 4.3 TH/MM3 (4.0-11.0)
[2017-06-24 07:53] LABS: ALBUMIN 2.2 GM/DL (3.4-5.0); ALT (GPT) 65 U/L (10-53); AST (GOT) 143 U/L (15-37); BICARBONATE 20.3 MEQ/L (21.0-32.0); BLOOD UREA NITROGEN 9 MG/DL (7-18); CALCIUM 7.9 MG/DL (8.5-10.1); CHLORIDE 112 MEQ/L (98-107); CREATININE 0.93 MG/DL (0.50-1.00); GLOMERULAR FILTRATION RATE 63 ML/MIN (>89); GLUCOSE,RANDOM 124 MG/DL (74-106); SODIUM (NA) 142 MEQ/L (136-145)
[2017-06-24 07:56] LABS: ALKALINE PHOSPHATASE 83 U/L (45-117); TOTAL BILIRUBIN ADULT 3.3 MG/DL (0.2-1.0); TOTAL PROTEIN 6.8 GM/DL (6.4-8.2)
[2017-06-24 08:00] VITALS: BP 114/61; PULSE 79; RESP 18; TEMP 97.4; O2SAT 99
[2017-06-24] MEDS: INSULIN ASPART SUPPLEMENTAL SCALE SQ SCH ×4 (08:00→21:26)
[2017-06-24] MEDS: LACTULOSE SYRUP 20 GM/30 ML CUP PO SCH ×2 (08:09→21:31)
[2017-06-24] MEDS: NADOLOL 20 MG TAB PO SCH (08:10)
[2017-06-24] MEDS: FERROUS SULFATE 325 MG (65 MG ELEMENTAL IRON) TAB PO SCH ×2 (08:10→15:42)
[2017-06-24] MEDS: CHOLECALCIFEROL (VIT D3) 1000 UNIT TAB PO SCH (08:10)
[2017-06-24] MEDS: CIPROFLOXACIN 250 MG TAB PO SCH ×2 (08:10→21:31)
[2017-06-24] MEDS: MULTIVITAMIN TAB PO SCH (08:10)
[2017-06-24] MEDS: RIFAXIMIN 550 MG TAB PO SCH ×2 (08:15→21:31)
[2017-06-24] MEDS: SODIUM CHLOR 0.9% 1000 ML INJ 1,000 ML IV SCH (09:45)
--- NOTE | 2017-06-24 10:11 | HHI.PR ---
Subjective Remarks Pt complains of some difficulty with breathing today She reports having 8-10 BMs yesterday and has had 4 BMs already today Objective Vitals Vital Signs Date Time Temp Pulse Resp B/P (MAP) Pulse Ox O2 Delivery O2 Flow Rate FiO2 06/24/17 08:00 97.4 79 18 114/61 (78) 99 06/24/17 00:00 97.8 91 18 96/50 (65) 94 06/23/17 20:00 97.6 70 20 105/58 (74) 97 06/23/17 17:30 65 18 107/58 (74) 95 06/23/17 17:00 68 18 93/45 (61) 97 06/23/17 16:45 64 18 92/49 (63) 95 06/23/17 16:00 97.2 70 18 123/69 (87) 99 06/23/17 12:03 97.6 64 18 97/56 (70) 98 Result Diagram: 06/24/17 0651 06/24/17 0651 Other Results Laboratory Tests Test 06/23/17 04:53 06/23/17 22:20 06/24/17 06:51 Blood Urea Nitrogen 15 MG/DL 9 MG/DL Creatinine 0.98 MG/DL 0.93 MG/DL Random Glucose 76 MG/DL 69 MG/DL 124 MG/DL Calcium Level 8.5 MG/DL 7.9 MG/DL Sodium Level 140 MEQ/L 142 MEQ/L Potassium Level 3.9 MEQ/L 3.8 MEQ/L Chloride Level 108 MEQ/L 112 MEQ/L Carbon Dioxide Level 20.9 MEQ/L 20.3 MEQ/L Anion Gap 11 MEQ/L 10 MEQ/L Estimat Glomerular Filtration Rate 59 ML/MIN 63 ML/MIN Ammonia 62 MCMOL/L 129 MCMOL/L White Blood Count 4.3 TH/MM3 Red Blood Count 2.48 MIL/MM3 Hemoglobin 9.1 GM/DL Hematocrit 26.5 % Mean Corpuscular Volume 106.9 FL Mean Corpuscular Hemoglobin 36.6 PG Mean Corpuscular Hemoglobin Concent 34.2 % Red Cell Distribution Width 14.7 % Platelet Count 83 TH/MM3 Mean Platelet Volume 10.6 FL Neutrophils (%) (Auto) 48.9 % Lymphocytes (%) (Auto) 34.1 % Monocytes (%) (Auto) 14.9 % Eosinophils (%) (Auto) 1.4 % Basophils (%) (Auto) 0.7 % Neutrophils # (Auto) 2.1 TH/MM3 Lymphocytes # (Auto) 1.5 TH/MM3 Monocytes # (Auto) 0.6 TH/MM3 Eosinophils # (Auto) 0.1 TH/MM3 Basophils # (Auto) 0.0 TH/MM3 CBC Comment AUTO DIFF Differential Comment AUTO DIFF CONFIRMED Platelet Estimate LOW Platelet Morphology Comment NORMAL Total Protein 6.8 GM/DL Albumin 2.2 GM/DL Alkaline Phosphatase 83 U/L Aspartate Amino Transf (AST/SGOT) 143 U/L Alanine Aminotransferase (ALT/SGPT) 65 U/L Total Bilirubin 3.3 MG/DL Imaging Last Impressions Head CT 06/19/17 1251 Signed Impressions: Service Date/Time: Monday, June 19, 2017 14:09 - CONCLUSION: Negative for acute process. Ronaldo Potter MD FACR Chest X-Ray 06/19/17 1251 Signed Impressions: Service Date/Time: Monday, June 19, 2017 13:10 - CONCLUSION: Minimal nonspecific parenchymal changes left base. Ronaldo Potter MD FACR Gall Bladder Ultrasound 06/19/17 0000 Signed Impressions: Service Date/Time: Monday, June 19, 2017 15:56 - CONCLUSION: Hepatomegaly. Evelio Ferro MD Objective Remarks General: NAD, Alert and oriented Chest: CTA Cardiac: Regular Abd: +BS, soft mildly distended, nontender Ext: No edema A/P Problem List: (1) Liver failure ICD Codes: K72.90 - Hepatic failure, unspecified without coma Status: Acute Plan: 1. Pt with evidence for liver failure, hepatic encephalopathy, and falls due to encephalopathy. she admits to taking excessive amt's of Tylenol daily for over a year. She also has a hx of EtOH abuse and is currently very elusive to the exact amt still using. I spoke to family who just arrived in town and they are suspicious of EtOH excess. She also has thrombocytopenia. Spoke to PCP who says GI (DR BIRD) was concerned for autoimmune hepatitis and recommended liver bx and pt refused at the time. - Cont. scheduled lactulose 30mL BID for encephalopathy - Ammonia level increased to 129 today but pt has been having BMs and is alert and oriented - Cont. Rifaximin 500mg po BID, but will not likely be able to afford at d/c - Cont. Zofran/Protonix/Simethicone - PT recommending HHC/PT - Pt was seen by Dr. Oswald on 06/22 and he did recommend liver biopsy. - CT guided liver biopsy performed on 06/23/17. Pt was noted to have a small subcapsular hematoma around the right hepatic lobe post biopsy - Pt with some reported difficulty taking a deep breath today, check CXR - Monitor H/H, Hgb decreased today 2. Recent dx of celiac dz with iron def anemia. some degree of LFT abnormality may also be related. 3. DM, type 2 - hold OHA due to normal blood glucose levels 4. HTN - Hold antihypertensive meds due to low/normal BP 5. Acute renal insufficiency - Labs are improving with gentle IVF - Monitor labs - Could just be from lactulose and diarrhea. 6. UTI - Urine culture grew out E. coli and Enterococcus faecalis - Pt was started on Cipro 250mg po BID (2) Hepatic encephalopathy ICD Codes: K72.90 - Hepatic failure, unspecified without coma Status: Acute (3) Celiac disease ICD Codes: K90.0 - Celiac disease Status: Chronic (4) Iron deficiency anemia ICD Codes: D50.9 - Iron deficiency anemia, unspecified Status: Chronic (5) DM (diabetes mellitus) ICD Codes: E11.9 - Type 2 diabetes mellitus without complications Status: Chronic (6) HTN (hypertension) ICD Codes: I10 - Essential (primary) hypertension Status: Chronic (7) CKD (chronic kidney disease) stage 3, GFR 30-59 ml/min ICD Codes: N18.3 - Chronic kidney disease, stage 3 (moderate) Status: Chronic Assessment and Plan Patient examined. Assessment and plan formulated with Yakelin Keene PA-C. I agree with the above. hepatic failure. tylenol/etoh suspected GI concerned about autoimmune hepatitis and recc liver bx. this was done 06/23. called by radiologist. small capsular hematoma from bx. monitor h/h. abx for uti cont lactulose/rifaxamin for now. celiac dz/iron def anemia. Problem Qualifiers (1) Liver failure: Qualified Codes: K72.00 - Acute and subacute hepatic failure without coma Yakelin Keene Jun 24, 2017 10:11 Bj Herrera MD Jun 24, 2017 12:05
[2017-06-24] MEDS: PANTOPRAZOLE SODIUM 40 MG VIAL IV PUSH SCH ×2 (11:15→21:31)
[2017-06-24 12:00] VITALS: BP 95/50; PULSE 74; RESP 18; TEMP 97.5; O2SAT 97
--- NOTE | 2017-06-24 14:08 | RADRPT ---
EXAM DATE/TIME: 06/24/2017 13:34 [facility] COMPARISON: CHEST SINGLE AP, June 19, 2017, 13:10. INDICATIONS : Shortness of breath MEDICAL HISTORY : None. SURGICAL HISTORY : None. ENCOUNTER: Subsequent ACUITY: 1 month PAIN SCORE: 0/10 LOCATION: Bilateral chest FINDINGS: A single view of the chest demonstrates the lungs to be symmetrically aerated without evidence of mas s, infiltrate or effusion. The cardiomediastinal contours are unremarkable. Osseous structures are intact. CONCLUSION: No acute disease. Vadim Johnson MD on June 24, 2017 at 14:06 Board Certified Radiologist. This report was verified electronically.
[2017-06-24 16:00] VITALS: BP 111/64; PULSE 69; RESP 18; TEMP 97.6; O2SAT 95
[2017-06-24 20:00] VITALS: BP 109/58; PULSE 73; RESP 20; TEMP 98.1; O2SAT 98
[2017-06-25] VITALS: BP 107/61; PULSE 77; RESP 20; TEMP 97.5; O2SAT 98
[2017-06-25 04:00] VITALS: BP 124/77; PULSE 87; RESP 22; TEMP 97.6; O2SAT 96
[2017-06-25] MEDS: traMADol HCL 50 MG TAB PO PRN ×5 (05:29→23:47)
[2017-06-25] MEDS: SIMETHICONE 125 MG CHEWABLE TAB PO SCH ×3 (05:29→20:36)
[2017-06-25 08:00] VITALS: BP 118/62; PULSE 76; RESP 18; TEMP 97.3; O2SAT 98
[2017-06-25] MEDS: INSULIN ASPART SUPPLEMENTAL SCALE SQ SCH ×4 (08:00→20:47)
--- NOTE | 2017-06-25 08:41 | HHI.PR ---
Subjective Remarks Pt feels bloated and still feels like she has difficulty taking a deep breath but does not feel SOB Pt is afebrile and is on RA Pt continues to be A&Ox3 Still having frequent BMs Objective Vitals Vital Signs Date Time Temp Pulse Resp B/P (MAP) Pulse Ox O2 Delivery O2 Flow Rate FiO2 06/25/17 04:00 97.6 87 22 124/77 (93) 96 06/25/17 00:00 97.5 77 20 107/61 (76) 98 06/24/17 20:00 98.1 73 20 109/58 (75) 98 06/24/17 16:00 97.6 69 18 111/64 (80) 95 06/24/17 12:00 97.5 74 18 95/50 (65) 97 Result Diagram: 06/24/17 0651 06/24/17 0651 Other Results Laboratory Tests Test 06/23/17 22:20 06/24/17 06:51 Random Glucose 69 MG/DL 124 MG/DL White Blood Count 4.3 TH/MM3 Red Blood Count 2.48 MIL/MM3 Hemoglobin 9.1 GM/DL Hematocrit 26.5 % Mean Corpuscular Volume 106.9 FL Mean Corpuscular Hemoglobin 36.6 PG Mean Corpuscular Hemoglobin Concent 34.2 % Red Cell Distribution Width 14.7 % Platelet Count 83 TH/MM3 Mean Platelet Volume 10.6 FL Neutrophils (%) (Auto) 48.9 % Lymphocytes (%) (Auto) 34.1 % Monocytes (%) (Auto) 14.9 % Eosinophils (%) (Auto) 1.4 % Basophils (%) (Auto) 0.7 % Neutrophils # (Auto) 2.1 TH/MM3 Lymphocytes # (Auto) 1.5 TH/MM3 Monocytes # (Auto) 0.6 TH/MM3 Eosinophils # (Auto) 0.1 TH/MM3 Basophils # (Auto) 0.0 TH/MM3 CBC Comment AUTO DIFF Differential Comment AUTO DIFF CONFIRMED Platelet Estimate LOW Platelet Morphology Comment NORMAL Blood Urea Nitrogen 9 MG/DL Creatinine 0.93 MG/DL Total Protein 6.8 GM/DL Albumin 2.2 GM/DL Calcium Level 7.9 MG/DL Alkaline Phosphatase 83 U/L Aspartate Amino Transf (AST/SGOT) 143 U/L Alanine Aminotransferase (ALT/SGPT) 65 U/L Total Bilirubin 3.3 MG/DL Sodium Level 142 MEQ/L Potassium Level 3.8 MEQ/L Chloride Level 112 MEQ/L Carbon Dioxide Level 20.3 MEQ/L Anion Gap 10 MEQ/L Estimat Glomerular Filtration Rate 63 ML/MIN Ammonia 129 MCMOL/L Imaging Last Impressions Head CT 06/19/17 1251 Signed Impressions: Service Date/Time: Monday, June 19, 2017 14:09 - CONCLUSION: Negative for acute process. Ronaldo Potter MD FACR Chest X-Ray 06/19/17 1251 Signed Impressions: Service Date/Time: Monday, June 19, 2017 13:10 - CONCLUSION: Minimal nonspecific parenchymal changes left base. Ronaldo Potter MD FACR Gall Bladder Ultrasound 06/19/17 0000 Signed Impressions: Service Date/Time: Monday, June 19, 2017 15:56 - CONCLUSION: Hepatomegaly. Evelio Ferro MD Objective Remarks General: NAD, Alert and oriented Chest: CTA Cardiac: Regular Abd: +BS, soft mildly distended, nontender Ext: Minimal bilateral LE pitting edema A/P Problem List: (1) Liver failure ICD Codes: K72.90 - Hepatic failure, unspecified without coma Status: Acute Plan: 1. Pt with evidence for liver failure, hepatic encephalopathy, and falls due to encephalopathy. she admits to taking excessive amt's of Tylenol daily for over a year. She also has a hx of EtOH abuse and is currently very elusive to the exact amt still using. I spoke to family who just arrived in town and they are suspicious of EtOH excess. She also has thrombocytopenia. Spoke to PCP who says GI (DR BIRD) was concerned for autoimmune hepatitis and recommended liver bx and pt refused at the time. - Cont. scheduled lactulose 30mL BID for encephalopathy - Ammonia level increased to 129 today but pt has been having BMs and is alert and oriented - Cont. Rifaximin 500mg po BID, but will not likely be able to afford at d/c - Cont. Zofran/Protonix/Simethicone - PT recommending HHC/PT - Pt was seen by Dr. Oswald on 06/22 and he did recommend liver biopsy. - CT guided liver biopsy performed on 06/23/17. Pt was noted to have a small subcapsular hematoma around the right hepatic lobe post biopsy - Pt with some reported difficulty taking a deep breath today, CXR was negative for any acute changes - H/H decreased on 06/24, awaiting repeat labs today 2. Recent dx of celiac dz with iron def anemia. some degree of LFT abnormality may also be related. 3. DM, type 2 - hold OHA due to normal blood glucose levels 4. HTN - Hold antihypertensive meds due to low/normal BP 5. Acute renal insufficiency - Labs improved with gentle IVF - IVF stopped on 06/24 - Monitor labs - Could just be from lactulose and diarrhea. 6. UTI - Urine culture grew out E. coli and Enterococcus faecalis - Pt was started on Cipro 250mg po BID (2) Hepatic encephalopathy ICD Codes: K72.90 - Hepatic failure, unspecified without coma Status: Acute (3) Celiac disease ICD Codes: K90.0 - Celiac disease Status: Chronic (4) Iron deficiency anemia ICD Codes: D50.9 - Iron deficiency anemia, unspecified Status: Chronic (5) DM (diabetes mellitus) ICD Codes: E11.9 - Type 2 diabetes mellitus without complications Status: Chronic (6) HTN (hypertension) ICD Codes: I10 - Essential (primary) hypertension Status: Chronic (7) CKD (chronic kidney disease) stage 3, GFR 30-59 ml/min ICD Codes: N18.3 - Chronic kidney disease, stage 3 (moderate) Status: Chronic Assessment and Plan Patient examined. Assessment and plan formulated with Yakelin Keene PA-C. I agree with the above. hepatic failure. tylenol/etoh suspected GI concerned about autoimmune hepatitis and recc liver bx. this was done 06/23. called by radiologist. small capsular hematoma from bx. monitor h/h. abx for uti cont lactulose/rifaxamin for now. celiac dz/iron def anemia. f/u liver bx and rx appopriately . pt needs new GI doctor on d/c and new pcp. Problem Qualifiers (1) Liver failure: Qualified Codes: K72.00 - Acute and subacute hepatic failure without coma Yakelin Keene Jun 25, 2017 08:41 Bj Herrera MD Jun 25, 2017 12:55
[2017-06-25] MEDS: RIFAXIMIN 550 MG TAB PO SCH ×2 (09:00→20:36)
[2017-06-25 09:08] LABS: AUTOMATED NEUTROPHIL # 2.1 TH/MM3 (1.8-7.7); BASOPHIL % 0.9 % (0.0-2.0); EOSINOPHIL # 0.1 TH/MM3 (0-0.4); HEMOGLOBIN 10.1 GM/DL (11.6-15.3); LYMPH % 37.3 % (9.0-44.0); LYMPHOCYTE # 1.6 TH/MM3 (1.0-4.8); MEAN CELL VOLUME 107.5 FL (80.0-100.0); MEAN CORPUSCULAR HEMOGLOBIN 36.1 PG (27.0-34.0); MEAN CORPUSCULAR HGB CONC 33.5 % (32.0-36.0); MEAN PLATELET VOLUME 9.9 FL (7.0-11.0); MONO % 13.2 % (0.0-8.0); MONOCYTE # 0.6 TH/MM3 (0-0.9); NEUT % 46.6 % (16.0-70.0); PLATELET COUNT 84 TH/MM3 (150-450); RED BLOOD COUNT 2.79 MIL/MM3 (4.00-5.30); RED CELL DISTRIBUTION WIDTH 14.9 % (11.6-17.2); WHITE BLOOD COUNT 4.4 TH/MM3 (4.0-11.0)
[2017-06-25 09:43] LABS: ALBUMIN 2.6 GM/DL (3.4-5.0); AST (GOT) 156 U/L (15-37); BICARBONATE 21.4 MEQ/L (21.0-32.0); BLOOD UREA NITROGEN 8 MG/DL (7-18); CALCIUM 8.5 MG/DL (8.5-10.1); CHLORIDE 109 MEQ/L (98-107); CREATININE 1.04 MG/DL (0.50-1.00); GLOMERULAR FILTRATION RATE 55 ML/MIN (>89); GLUCOSE,RANDOM 66 MG/DL (74-106); MAGNESIUM 1.3 MG/DL (1.5-2.5); SODIUM (NA) 142 MEQ/L (136-145)
[2017-06-25] MEDS: LACTULOSE SYRUP 20 GM/30 ML CUP PO SCH ×2 (09:44→20:36)
[2017-06-25] MEDS: NADOLOL 20 MG TAB PO SCH (09:44)
[2017-06-25] MEDS: CIPROFLOXACIN 250 MG TAB PO SCH ×2 (09:44→20:36)
[2017-06-25] MEDS: MULTIVITAMIN TAB PO SCH (09:44)
[2017-06-25] MEDS: FERROUS SULFATE 325 MG (65 MG ELEMENTAL IRON) TAB PO SCH ×2 (09:44→18:23)
[2017-06-25] MEDS: CHOLECALCIFEROL (VIT D3) 1000 UNIT TAB PO SCH (09:44)
[2017-06-25 09:46] LABS: ALKALINE PHOSPHATASE 104 U/L (45-117); ALT (GPT) 78 U/L (10-53); TOTAL BILIRUBIN ADULT 3.8 MG/DL (0.2-1.0); TOTAL PROTEIN 8.1 GM/DL (6.4-8.2)
[2017-06-25 12:00] VITALS: BP 118/80; PULSE 77; RESP 18; TEMP 97.7; O2SAT 98
[2017-06-25] MEDS: PANTOPRAZOLE SODIUM 40 MG VIAL IV PUSH SCH ×2 (12:08→20:37)
[2017-06-25 16:00] VITALS: BP 106/59; PULSE 73; RESP 18; TEMP 97; O2SAT 99
[2017-06-25 20:30] VITALS: BP 140/82; PULSE 86; RESP 19; TEMP 97.8; O2SAT 97
[2017-06-25] MEDS: SODIUM CHLORIDE 0.9% FLUSH 10 ML FLUSH IV FLUSH PRN (20:37)
[2017-06-26 00:30] VITALS: BP 124/72; PULSE 74; RESP 18; TEMP 97.3; O2SAT 99
[2017-06-26] MEDS: SIMETHICONE 125 MG CHEWABLE TAB PO SCH ×3 (05:38→22:29)
[2017-06-26 07:23] LABS: AUTOMATED NEUTROPHIL # 2.1 TH/MM3 (1.8-7.7); BASOPHIL % 0.8 % (0.0-2.0); EOSINOPHIL # 0.1 TH/MM3 (0-0.4); EOSINOPHIL % 2.1 % (0.0-4.0); HEMATOCRIT 29.8 % (35.0-46.0); HEMOGLOBIN 10.2 GM/DL (11.6-15.3); LYMPH % 44.1 % (9.0-44.0); LYMPHOCYTE # 2.4 TH/MM3 (1.0-4.8); MEAN CELL VOLUME 107.7 FL (80.0-100.0); MEAN CORPUSCULAR HEMOGLOBIN 36.7 PG (27.0-34.0); MEAN CORPUSCULAR HGB CONC 34.1 % (32.0-36.0); MEAN PLATELET VOLUME 10.7 FL (7.0-11.0); MONO % 14.5 % (0.0-8.0); MONOCYTE # 0.8 TH/MM3 (0-0.9); NEUT % 38.5 % (16.0-70.0); PLATELET COUNT 103 TH/MM3 (150-450); RED BLOOD COUNT 2.77 MIL/MM3 (4.00-5.30); RED CELL DISTRIBUTION WIDTH 14.5 % (11.6-17.2); WHITE BLOOD COUNT 5.4 TH/MM3 (4.0-11.0)
[2017-06-26 07:46] LABS: ALBUMIN 2.6 GM/DL (3.4-5.0); AST (GOT) 150 U/L (15-37); BICARBONATE 22.4 MEQ/L (21.0-32.0); BLOOD UREA NITROGEN 9 MG/DL (7-18); CALCIUM 8.2 MG/DL (8.5-10.1); CHLORIDE 109 MEQ/L (98-107); CREATININE 1.06 MG/DL (0.50-1.00); GLOMERULAR FILTRATION RATE 54 ML/MIN (>89); GLUCOSE,RANDOM 67 MG/DL (74-106); SODIUM (NA) 140 MEQ/L (136-145)
[2017-06-26 07:47] LABS: ALT (GPT) 74 U/L (10-53)
[2017-06-26 07:49] LABS: ALKALINE PHOSPHATASE 88 U/L (45-117); TOTAL BILIRUBIN ADULT 3.6 MG/DL (0.2-1.0); TOTAL PROTEIN 7.8 GM/DL (6.4-8.2)
[2017-06-26 08:00] VITALS: BP 120/57; PULSE 76; RESP 16; TEMP 97.6; O2SAT 100
[2017-06-26] MEDS: INSULIN ASPART SUPPLEMENTAL SCALE SQ SCH ×4 (08:00→21:00)
[2017-06-26] MEDS: CHOLECALCIFEROL (VIT D3) 1000 UNIT TAB PO SCH (08:39)
[2017-06-26] MEDS: LACTULOSE SYRUP 20 GM/30 ML CUP PO SCH ×2 (08:39→22:29)
[2017-06-26] MEDS: FERROUS SULFATE 325 MG (65 MG ELEMENTAL IRON) TAB PO SCH ×2 (08:39→16:58)
[2017-06-26] MEDS: RIFAXIMIN 550 MG TAB PO SCH ×2 (08:39→22:29)
[2017-06-26] MEDS: MULTIVITAMIN TAB PO SCH (08:39)
[2017-06-26] MEDS: CIPROFLOXACIN 250 MG TAB PO SCH ×2 (08:40→22:29)
[2017-06-26] MEDS: NADOLOL 20 MG TAB PO SCH (08:40)
[2017-06-26] MEDS: traMADol HCL 50 MG TAB PO PRN ×4 (08:40→22:34)
[2017-06-26] MEDS: PANTOPRAZOLE SODIUM 40 MG VIAL IV PUSH SCH ×2 (11:00→22:29)
[2017-06-26 12:00] VITALS: BP 120/59; PULSE 72; RESP 16; TEMP 98.3; O2SAT 97
--- NOTE | 2017-06-26 14:37 | HHI.PR ---
Subjective Remarks No new complaints Pt is afebrile Objective Vitals Vital Signs Date Time Temp Pulse Resp B/P (MAP) Pulse Ox O2 Delivery O2 Flow Rate FiO2 06/26/17 08:00 97.6 76 16 120/57 (78) 100 06/26/17 00:30 97.3 74 18 124/72 (89) 99 06/25/17 20:30 97.8 86 19 140/82 (101) 97 06/25/17 16:00 97.0 73 18 106/59 (75) 99 Result Diagram: 06/26/17 0625 06/26/17 0625 Other Results Laboratory Tests Test 06/25/17 08:51 06/26/17 06:25 White Blood Count 4.4 TH/MM3 5.4 TH/MM3 Red Blood Count 2.79 MIL/MM3 2.77 MIL/MM3 Hemoglobin 10.1 GM/DL 10.2 GM/DL Hematocrit 30.0 % 29.8 % Mean Corpuscular Volume 107.5 FL 107.7 FL Mean Corpuscular Hemoglobin 36.1 PG 36.7 PG Mean Corpuscular Hemoglobin Concent 33.5 % 34.1 % Red Cell Distribution Width 14.9 % 14.5 % Platelet Count 84 TH/MM3 103 TH/MM3 Mean Platelet Volume 9.9 FL 10.7 FL Neutrophils (%) (Auto) 46.6 % 38.5 % Lymphocytes (%) (Auto) 37.3 % 44.1 % Monocytes (%) (Auto) 13.2 % 14.5 % Eosinophils (%) (Auto) 2.0 % 2.1 % Basophils (%) (Auto) 0.9 % 0.8 % Neutrophils # (Auto) 2.1 TH/MM3 2.1 TH/MM3 Lymphocytes # (Auto) 1.6 TH/MM3 2.4 TH/MM3 Monocytes # (Auto) 0.6 TH/MM3 0.8 TH/MM3 Eosinophils # (Auto) 0.1 TH/MM3 0.1 TH/MM3 Basophils # (Auto) 0.0 TH/MM3 0.0 TH/MM3 CBC Comment AUTO DIFF DIFF FINAL Differential Comment AUTO DIFF CONFIRMED Platelet Estimate LOW Platelet Morphology Comment NORMAL Blood Urea Nitrogen 8 MG/DL 9 MG/DL Creatinine 1.04 MG/DL 1.06 MG/DL Random Glucose 66 MG/DL 67 MG/DL Total Protein 8.1 GM/DL 7.8 GM/DL Albumin 2.6 GM/DL 2.6 GM/DL Calcium Level 8.5 MG/DL 8.2 MG/DL Magnesium Level 1.3 MG/DL Alkaline Phosphatase 104 U/L 88 U/L Aspartate Amino Transf (AST/SGOT) 156 U/L 150 U/L Alanine Aminotransferase (ALT/SGPT) 78 U/L 74 U/L Total Bilirubin 3.8 MG/DL 3.6 MG/DL Sodium Level 142 MEQ/L 140 MEQ/L Potassium Level 3.5 MEQ/L 3.6 MEQ/L Chloride Level 109 MEQ/L 109 MEQ/L Carbon Dioxide Level 21.4 MEQ/L 22.4 MEQ/L Anion Gap 12 MEQ/L 9 MEQ/L Estimat Glomerular Filtration Rate 55 ML/MIN 54 ML/MIN Ammonia 76 MCMOL/L Imaging Last Impressions Head CT 06/19/17 125 Signed Impressions: Service Date/Time: Monday, June 19, 2017 14:09 - CONCLUSION: Negative for acute process. Ronaldo Potter MD FACR Chest X-Ray 06/19/17 1251 Signed Impressions: Service Date/Time: Monday, June 19, 2017 13:10 - CONCLUSION: Minimal nonspecific parenchymal changes left base. Ronaldo Potter MD FACR Gall Bladder Ultrasound 06/19/17 0000 Signed Impressions: Service Date/Time: Monday, June 19, 2017 15:56 - CONCLUSION: Hepatomegaly. Evelio Ferro MD Objective Remarks General: NAD, Alert and oriented Chest: CTA Cardiac: Regular Abd: +BS, soft mildly distended, nontender Ext: Minimal bilateral LE pitting edema A/P Problem List: (1) Liver failure ICD Codes: K72.90 - Hepatic failure, unspecified without coma Status: Acute Plan: -Pt with evidence for liver failure, hepatic encephalopathy, and falls due to encephalopathy. she admits to taking excessive amt's of Tylenol daily for over a year. She also has a hx of EtOH abuse and is currently very elusive to the exact amt still using. I spoke to family who just arrived in town and they are suspicious of EtOH excess. She also has thrombocytopenia. Spoke to PCP who says GI (DR BIRD) was concerned for autoimmune hepatitis and recommended liver bx and pt refused at the time. - Cont. scheduled lactulose 30mL BID for encephalopathy - Ammonia level increased to 129 on 06/24 but pt has been having BMs and is alert and oriented - Repeat ammonia level on 06/25 down to 76 - Cont. Rifaximin 500mg po BID, but will not likely be able to afford at d/c - Cont. Zofran/Protonix/Simethicone - PT recommending HHC/PT - Pt was seen by Dr. Oswald on 06/22 and he did recommend liver biopsy. - CT guided liver biopsy performed on 06/23/17. Pt was noted to have a small subcapsular hematoma around the right hepatic lobe post biopsy - CXR was negative for any acute changes - H/H on 06/26/17 are 10.2/29.8 (2) Hepatic encephalopathy ICD Codes: K72.90 - Hepatic failure, unspecified without coma Status: Acute Plan: - See above (3) Celiac disease ICD Codes: K90.0 - Celiac disease Status: Chronic Plan: - Recent dx of celiac dz with iron def anemia. some degree of LFT abnormality may also be related. - Gluten free diet (4) Iron deficiency anemia ICD Codes: D50.9 - Iron deficiency anemia, unspecified Status: Chronic Plan: - Labs are stable - monitor (5) DM (diabetes mellitus) ICD Codes: E11.9 - Type 2 diabetes mellitus without complications Status: Chronic Plan: - Hold OHA due to normal blood glucose levels (6) HTN (hypertension) ICD Codes: I10 - Essential (primary) hypertension Status: Chronic Plan: - Hold antihypertensive meds due to low/normal BP (7) CKD (chronic kidney disease) stage 3, GFR 30-59 ml/min ICD Codes: N18.3 - Chronic kidney disease, stage 3 (moderate) Status: Chronic Plan: - Labs improved with gentle IVF - IVF stopped on 06/24 - Monitor labs - Could just be from lactulose and diarrhea. (8) UTI (urinary tract infection) ICD Codes: N39.0 - Urinary tract infection, site not specified Status: Acute Plan: - Urine culture grew out E. coli and Enterococcus faecalis - Pt was started on Cipro 250mg po BID Problem Qualifiers (1) Liver failure: Qualified Codes: K72.00 - Acute and subacute hepatic failure without coma (2) DM (diabetes mellitus): Yakelin Keene Jun 26, 2017 14:37
[2017-06-26 16:00] VITALS: BP 135/60; PULSE 79; RESP 16; TEMP 96; O2SAT 95
[2017-06-26 20:00] VITALS: BP 142/80; PULSE 84; RESP 18; TEMP 98.2; O2SAT 100
[2017-06-26] MEDS: SODIUM CHLORIDE 0.9% FLUSH 10 ML FLUSH IV FLUSH PRN (22:29)
[2017-06-27] VITALS: BP 110/66; PULSE 71; RESP 19; TEMP 98; O2SAT 100
[2017-06-27] MEDS: SIMETHICONE 125 MG CHEWABLE TAB PO SCH ×3 (05:37→19:38)
[2017-06-27] MEDS: traMADol HCL 50 MG TAB PO PRN ×3 (05:40→22:42)
[2017-06-27] MEDS: INSULIN ASPART SUPPLEMENTAL SCALE SQ SCH ×4 (07:33→19:39)
[2017-06-27 08:00] VITALS: BP 127/72; PULSE 83; RESP 18; TEMP 97.9; O2SAT 98
[2017-06-27] MEDS: FERROUS SULFATE 325 MG (65 MG ELEMENTAL IRON) TAB PO SCH ×2 (08:58→17:53)
[2017-06-27] MEDS: CHOLECALCIFEROL (VIT D3) 1000 UNIT TAB PO SCH (08:58)
[2017-06-27] MEDS: RIFAXIMIN 550 MG TAB PO SCH ×2 (08:58→19:38)
[2017-06-27] MEDS: NADOLOL 20 MG TAB PO SCH (08:58)
[2017-06-27] MEDS: CIPROFLOXACIN 250 MG TAB PO SCH ×2 (08:58→19:38)
[2017-06-27] MEDS: MULTIVITAMIN TAB PO SCH (08:58)
[2017-06-27] MEDS: LACTULOSE SYRUP 20 GM/30 ML CUP PO SCH ×2 (08:59→19:38)
[2017-06-27] MEDS: PANTOPRAZOLE SODIUM 40 MG VIAL IV PUSH SCH ×2 (09:01→19:39)
[2017-06-27 12:00] VITALS: BP 108/68; PULSE 68; RESP 17; TEMP 97.7; O2SAT 98
[2017-06-27 16:00] VITALS: BP 128/72; PULSE 77; RESP 17; TEMP 98.5; O2SAT 100
[2017-06-27] MEDS ORDERED: TRAM50TA PO (16:42)
[2017-06-27] MEDS ORDERED: LACT10SO PO (16:42)
[2017-06-27] MEDS ORDERED: XIFA550T4 PO (16:42)
[2017-06-27] MEDS ORDERED: SIME125 PO (16:42)
--- NOTE | 2017-06-27 16:43 | HHI.DS ---
Discharge Summary Admission Date Jun 19, 2017 at 14:52 Admitting Diagnosis hepatic encephalopathy, liver failure, coagulpathy (1) Liver failure ICD Codes: K72.90 - Hepatic failure, unspecified without coma Status: Acute (2) Hepatic encephalopathy ICD Codes: K72.90 - Hepatic failure, unspecified without coma Status: Acute (3) Celiac disease ICD Codes: K90.0 - Celiac disease Status: Chronic (4) Iron deficiency anemia ICD Codes: D50.9 - Iron deficiency anemia, unspecified Status: Chronic (5) DM (diabetes mellitus) ICD Codes: E11.9 - Type 2 diabetes mellitus without complications Status: Chronic (6) HTN (hypertension) ICD Codes: I10 - Essential (primary) hypertension Status: Chronic (7) CKD (chronic kidney disease) stage 3, GFR 30-59 ml/min ICD Codes: N18.3 - Chronic kidney disease, stage 3 (moderate) Status: Chronic (8) UTI (urinary tract infection) ICD Codes: N39.0 - Urinary tract infection, site not specified Status: Acute Brief History Patient is 51 yo with htn and dm 2. She was seen here at [facility] in 02/09 with symptomatic anemia and new diagnosis of iron def anemia was made. she was given blood transfusion and had guiac neg stool. Mild lft elevation and her celiac ab's were positive. She was discharged and f/ u with pcp then GI and had egd/colonoscopy. Sent to [facility] and then [facility]. Per my discussion with pcp GI/Rheum thought she also might have autoimmune hepatitis and recommended liver bx. Pt then refused to go back to those physicians. Later noted to have elevated ammonia but was noncompliant with lactulose. Has recently been more confused with falls resumed lactulose 2 days ago but daughter came into town and brought her to ED for slow mentation and balance concerns. Pt tells me it has been up to a month since her last drink of wine. But daughter and another family friend found open wine bottle on her table. Pt reluctantly admitted to etoh overuse in the past and she admits to 6-8 tylenol per day for around a yr. Presented with hepatic encephalopathy and I was asked to admit her. CBC/BMP: 06/26/17 0625 06/26/17 0625 Significant Findings Laboratory Tests Test 06/25/17 08:51 06/26/17 06:25 Red Blood Count 2.79 MIL/MM3 (4.00-5.30) 2.77 MIL/MM3 (4.00-5.30) Hemoglobin 10.1 GM/DL (11.6-15.3) 10.2 GM/DL (11.6-15.3) Hematocrit 30.0 % (35.0-46.0) 29.8 % (35.0-46.0) Mean Corpuscular Volume 107.5 FL (80.0-100.0) 107.7 FL (80.0-100.0) Mean Corpuscular Hemoglobin 36.1 PG (27.0-34.0) 36.7 PG (27.0-34.0) Platelet Count 84 TH/MM3 (150-450) 103 TH/MM3 (150-450) Monocytes (%) (Auto) 13.2 % (0.0-8.0) 14.5 % (0.0-8.0) Platelet Estimate LOW (NORMAL) Creatinine 1.04 MG/DL (0.50-1.00) 1.06 MG/DL (0.50-1.00) Random Glucose 66 MG/DL (74-106) 67 MG/DL (74-106) Albumin 2.6 GM/DL (3.4-5.0) 2.6 GM/DL (3.4-5.0) Magnesium Level 1.3 MG/DL (1.5-2.5) Aspartate Amino Transf (AST/SGOT) 156 U/L (15-37) 150 U/L (15-37) Alanine Aminotransferase (ALT/SGPT) 78 U/L (10-53) 74 U/L (10-53) Total Bilirubin 3.8 MG/DL (0.2-1.0) 3.6 MG/DL (0.2-1.0) Chloride Level 109 MEQ/L (98-107) 109 MEQ/L (98-107) Estimat Glomerular Filtration Rate 55 ML/MIN (>89) 54 ML/MIN (>89) Ammonia 76 MCMOL/L (11-32) Lymphocytes (%) (Auto) 44.1 % (9.0-44.0) Calcium Level 8.2 MG/DL (8.5-10.1) PE at Discharge General: NAD, Alert and oriented Chest: CTA Cardiac: Regular Abd: +BS, soft mildly distended, nontender Ext: Minimal bilateral LE pitting edema Hospital Course (1) Liver failure ICD Codes: K72.90 - Hepatic failure, unspecified without coma Status: Acute Plan: -Pt with evidence for liver failure, hepatic encephalopathy, and falls due to encephalopathy. she admits to taking excessive amt's of Tylenol daily for over a year. She also has a hx of EtOH abuse and is currently very elusive to the exact amt still using. I spoke to family who just arrived in town and they are suspicious of EtOH excess. She also has thrombocytopenia. Spoke to PCP who says GI (DR IBRD) was concerned for autoimmune hepatitis and recommended liver bx and pt refused at the time. - Cont. scheduled lactulose 30mL BID for encephalopathy - Ammonia level increased to 129 on 06/24 but pt has been having BMs and is alert and oriented - Repeat ammonia level on 06/25 down to 76 - Cont. Rifaximin 500mg po BID, but will not likely be able to afford at d/c - Cont. Zofran/Protonix/Simethicone - PT recommending HHC/PT - Pt was seen by Dr. Oswald on 06/22 and he did recommend liver biopsy. - CT guided liver biopsy performed on 06/23/17. Pt was noted to have a small subcapsular hematoma around the right hepatic lobe post biopsy - CXR was negative for any acute changes - H/H on 06/26/17 are 10.2/29.8 (2) Hepatic encephalopathy ICD Codes: K72.90 - Hepatic failure, unspecified without coma Status: Acute Plan: - See above (3) Celiac disease ICD Codes: K90.0 - Celiac disease Status: Chronic Plan: - Recent dx of celiac dz with iron def anemia. some degree of LFT abnormality may also be related. - Gluten free diet (4) Iron deficiency anemia ICD Codes: D50.9 - Iron deficiency anemia, unspecified Status: Chronic Plan: - Labs are stable - monitor (5) DM (diabetes mellitus) ICD Codes: E11.9 - Type 2 diabetes mellitus without complications Status: Chronic Plan: - Hold OHA due to normal blood glucose levels (6) HTN (hypertension) ICD Codes: I10 - Essential (primary) hypertension Status: Chronic Plan: - Hold antihypertensive meds due to low/normal BP (7) CKD (chronic kidney disease) stage 3, GFR 30-59 ml/min ICD Codes: N18.3 - Chronic kidney disease, stage 3 (moderate) Status: Chronic Plan: - Labs improved with gentle IVF - IVF stopped on 06/24 - Monitor labs - Could just be from lactulose and diarrhea. (8) UTI (urinary tract infection) ICD Codes: N39.0 - Urinary tract infection, site not specified Status: Acute Plan: - Urine culture grew out E. coli and Enterococcus faecalis - Pt was started on Cipro 250mg po BID Reji Beard DO Jun 27, 2017 16:43
[2017-06-27] MEDS ORDERED: WALKER WHEELS/F1 MIS (16:58)
--- NOTE | 2017-06-27 17:00 | HHI.DCPOC ---
Discharge Care Plan Diagnosis: (1) Hepatic encephalopathy (2) Celiac disease (3) DM (diabetes mellitus) (4) CKD (chronic kidney disease) stage 3, GFR 30-59 ml/min (5) HTN (hypertension) (6) Abnormal liver enzymes Goals to Promote Your Health * To prevent worsening of your condition and complications * To maintain your health at the optimal level Directions to Meet Your Goals Take your medications as prescribed Follow your dietary instruction Follow activity as directed Keep your appointments as scheduled Take your immunizations and boosters as scheduled If your symptoms worsen call your PCP, if no PCP go to Urgent Care Center or Emergency Room Smoking is Dangerous to Your Health. Avoid second hand smoke Call the 24-hour hour crisis hotline for domestic abuse at Reji Beard DO Jun 27, 2017 17:00
[2017-06-27] MEDS: SODIUM CHLORIDE 0.9% FLUSH 10 ML FLUSH IV FLUSH PRN (19:39)
[2017-06-27 20:50] VITALS: BP 112/61; PULSE 72; RESP 18; TEMP 97.7; O2SAT 100
[2017-06-28 00:17] VITALS: BP 108/70; PULSE 75; RESP 18; TEMP 98; O2SAT 100
[2017-06-28 04:09] VITALS: BP 117/69; PULSE 85; RESP 18; TEMP 98.2; O2SAT 100
[2017-06-28] MEDS: SIMETHICONE 125 MG CHEWABLE TAB PO SCH (05:09)
[2017-06-28] MEDS: traMADol HCL 50 MG TAB PO PRN (05:12)
[2017-06-28 08:00] VITALS: BP 118/71; PULSE 80; RESP 18; TEMP 97.3; O2SAT 100
[2017-06-28] MEDS: INSULIN ASPART SUPPLEMENTAL SCALE SQ SCH ×2 (08:00→12:00)
[2017-06-28] MEDS: FERROUS SULFATE 325 MG (65 MG ELEMENTAL IRON) TAB PO SCH (08:17)
[2017-06-28] MEDS: RIFAXIMIN 550 MG TAB PO SCH (08:17)
[2017-06-28] MEDS: NADOLOL 20 MG TAB PO SCH (08:17)
[2017-06-28] MEDS: MULTIVITAMIN TAB PO SCH (08:17)
[2017-06-28] MEDS: CHOLECALCIFEROL (VIT D3) 1000 UNIT TAB PO SCH (08:17)
[2017-06-28] MEDS: CIPROFLOXACIN 250 MG TAB PO SCH (08:17)
[2017-06-28] MEDS: LACTULOSE SYRUP 20 GM/30 ML CUP PO SCH (08:17)
[2017-06-28] MEDS: PANTOPRAZOLE SODIUM 40 MG VIAL IV PUSH SCH (10:30)
== END 2017-06-28 15:29 | disposition home or self-care (01) | DRG 442 ==
LOC: NEPE 12:33 → NEDA 14:52 → N06A 19:43
PROVIDERS: ADMIT Hospitalist; ATTEND Hospitalist
PROC: 0FB03ZX Excision of Liver, Percutaneous Approach, Diagnostic (ICD-10-PCS; principal; 2017-06-23)
DX: K72.00 Acute and subacute hepatic failure without coma (principal); N39.0 Urinary tract infection, site not specified; B95.2 Enterococcus as the cause of diseases classified elsewhere; B96.20 Unspecified Escherichia coli [E. coli] as the cause of diseases classified elsewhere; E11.22 Type 2 diabetes mellitus with diabetic chronic kidney disease; Z79.84 Long term (current) use of oral hypoglycemic drugs; D69.6 Thrombocytopenia, unspecified; K91.870 Postprocedural hematoma of a digestive system organ or structure following a digestive system procedure; I12.9 Hypertensive chronic kidney disease with stage 1 through stage 4 chronic kidney disease, or unspecified chronic kidney disease; N18.3 Chronic kidney disease, stage 3 (moderate); K90.0 Celiac disease; D50.9 Iron deficiency anemia, unspecified; N28.9 Disorder of kidney and ureter, unspecified; Z91.19 Patient's noncompliance with other medical treatment and regimen; Z79.899 Other long term (current) drug therapy; E03.9 Hypothyroidism, unspecified
CPT/HCPCS: 47000; 70450; 71010; 76705; 77012; 80048; 80053; 80076; 80307; 81001; 82140; 82947; 82948; 83735; 84484; 85025; 85610; 85730; 87077; 87086; 87186; 88307; 88313; 93005; C9113; J1885; J2060; J2250; J2405; J3010; J7030